=== PATIENT | female | born 1990 | race Caucasian/White ===

== ENCOUNTER 2024-06-19 12:25 | Outpatient (OUT) | payer MEDICAID, SELFPAY ==
--- NOTE | 2024-06-19 13:02 | XR_ITS ---
[facility] [place] [id number] Patient Name: VALERY LEWIS MRN: [id number] date: 1990 Sex: F Assigned Patient Location: [facility] Current Patient Location: Accession/Order Number: [id number] Exam Date: 06/19/2024 12:50 Report Date: 06/20/2024 09:23 At the request of: NIA WILSON Procedure: XR cervical spine 5V EXAMINATION: XR cervical spine 5V HISTORY: Neck Pain M54.2 COMPARISON: No relevant comparison available. FINDINGS: BONES: Normal alignment with no acute fracture or spondylolisthesis. Mild to moderate spondylosis C5-C6 DISC SPACES: Normal. No significant disc height narrowing, subluxation, or endplate abnormality. PARASPINOUS: Negative. No paraspinous abnormality is seen. OTHER: Negative. XR/XR cervical spine 5V IMPRESSION: Spondylosis C5-C6 Electronically authenticated by: HAN SCHWARTZ Date: 06/20/2024 09:23
[2024-06-19 13:18] LABS: Basophils Absolute Auto 0.1 10^3/uL (0.0-0.1); Basophils Percent Auto 0.9 % (0.2-2.0); Eosinophils Absolute Auto 0.1 10^3/uL (0.0-0.7); Eosinophils Percent Auto 1.3 % (0.9-7.0); Hematocrit 39.2 % (36.0-48.0); Hemoglobin 13.2 g/dL (12.0-16.0); Immature Granulocytes Abs Auto 0.01 10^3/uL (0.00-0.03); Immature Granulocytes Pct Auto 0.1 % (0.0-0.5); Lymphocytes Absolute Auto 2.1 10^3/uL (1.2-3.8); Lymphocytes Percent Auto 30.6 % (20.5-60.0); Mean Corpuscular HGB Conc 33.7 g/dL (29.9-35.2); Mean Corpuscular Hemoglobin 28.2 pg (26.7-34.0); Mean Corpuscular Volume 83.8 fL (81.0-99.0); Mean Platelet Volume 8.5 fL (9.5-13.5); Monocytes Absolute Auto 0.5 10^3/uL (0.3-0.8); Monocytes Percent Auto 6.5 % (1.7-12.0); Neutrophils Absolute Auto 4.2 10^3/uL (1.4-6.5); Neutrophils Percent Auto 60.6 % (43.0-75.0); Platelet Count 322 10^3/uL (150-450); Red Blood Count 4.68 10^6/uL (4.20-5.40)
[2024-06-19 13:47] LABS: Erythrocyte Sedimentation Rate 5 mm/hr (<=20)
[2024-06-19 13:57] LABS: Alanine Aminotransferase 22 U/L (14-59); Albumin Globulin Ratio 1.2; Alkaline Phosphatase 69 U/L (46-116); Anion Gap 11.8; Aspartate Amino Transferase 13 U/L (15-37); BUN Creatinine Ratio 15.4; Bilirubin Total 0.6 mg/dL (0.2-1.0); C Reactive Protein <0.50 mg/dL (<=0.50); Chloride 100 mmol/L (98-107); Estimated GFR (African America >60 (>=60 mL/min/1.73m^2); Estimated GFR (Non-African Ame >60 (>=60 mL/min/1.73m^2); Globulin 3.4 g/dL; Glucose 83 mg/dL (74-106); Potassium 3.8 mmol/L (3.5-5.1); Sodium 137 mmol/L (136-145); TSH W/ REFLEX FT4 0.613 uIU/mL (0.358-3.740); Total Protein 7.4 g/dL (6.4-8.2)
[2024-06-19 14:09] LABS: Percent Iron Saturation 47.1 %
[2024-06-20 08:15] LABS: Vitamin B12 416 pg/mL (232-1245)
[2024-06-20 13:07] LABS: Anti-CCP Ab, IgG/IgA 2 units (0-19); Antistreptolysin O Ab 124.9 IU/mL (0.0-200.0); Rheumatoid Factor (RF) 10.3 IU/mL (<14.0)
[2024-06-21 13:09] LABS: Antinuclear Antibodies, IFA Positive (.)
== END 2024-06-19 12:26 | disposition home or self-care (01) ==
LOC: RAD 12:29
PROVIDERS: PCP Nurse Practitioner Family; Visit Provider Nurse Practitioner Family
DX: R53.83 Other fatigue (principal); M25.9 Joint disorder, unspecified; G47.9 Sleep disorder, unspecified; E53.8 Deficiency of other specified B group vitamins; M54.2 Cervicalgia; M47.812 Spondylosis without myelopathy or radiculopathy, cervical region
CPT/HCPCS: 36415; 72050; 80053; 82306; 82607; 83540; 83550; 84443; 85025; 85652; 86038; 86060; 86140; 86200; 86431

== ENCOUNTER 2024-12-07 09:12 | Outpatient (OUT) | payer OTHER, SELFPAY ==
--- OUTSIDE RECORDS SUMMARY | 2022-06-17 07:31 | XMS_ITS | Continuity of Care Document ---
Author Organization [facility] Address [address] [place] [phone] Phone Care Team Providers Care Materials Planning Analyst Name Role Phone PCS, Other Non Billable [...] Diagnoses Date Provider Providers Copied on Encounter [facility], [address] [place] [address], [id number], [place] tel:[phone] L Call Center No Information 3 PCS Other Non Billable. [address] [place] [address], [id number], [place]. tel:[phone] RC Contraception [facility], [address] [place] [address], [address], tel: [phone] P ALMA Family Planning breast discharge (chief complaint) Initial Exam (chief complaint) contracept ion (chief complaint) Family planningInversion, nippleGynecologica l Examination 4 Kirk Khan. [address] [place] [address], [id number], [place]. tel:[phone] [facility], [address] [place] [address], [address], tel: [phone] C [facility] STD Clinic STI (chief complaint) Screening examination for venereal disease 4 [facility] Nurse. [address] [place] [address], [id number], [place]. tel:[phone] [facility], [address] [place] [address], [address], tel: [phone] P [facility] Dental No Information 2 Trey Laws. [address] [place] [address], [id number], [place]. tel:[phone] [facility], [address] [place] [address], [address], tel: [phone] P B[facility] General Medicine Screening examination for venereal disease 1 Jennifer Zaman. [address] [place] [address], [id number], [place]. tel:[phone] Family History Family Member Type Diagnosis Age [...] Of Treatment Date Type Action Status Goal Hepatitis C screening. Due o n due Goal CT-Colonography. Due on due Goal HPV. Due on due Goal FIT-DNA. Due on due Goal Unhealthy drug use screening . Due on due Goal FIT. Due on due Goal Pap/HPV testing. Due on due Goal Nutritional Screening Assess ment. Due on due Goal Hep C AB-8472. Due on due Goal Tdap. Due on due Goal FOBT. Due on due Goal Colonoscopy. Due on 023 due Goal Health Literacy. Due on due Goal Self Management Goals. Due o n due Goal Influenza vaccine. Due on due Goal Dental exam. Due on 023 due Goal Depression screening. Due on due Goal Tobacco cessation counseling [...] states wants to have gyne care with [facility]. breast discharge Location is lef t [...]
--- OUTSIDE RECORDS SUMMARY | 2024-12-05 14:00 | XMS_ITS | Encounter Summary ---
Author Organization [facility] Address [address], [address] [place] [address] Care Team Providers Care Family Helper Name Role Phone Artie Escobar DO Primary Care Provider Encounter Details Date Type Department Care Team (Late st Contact Info) Description 12/05/2024 2:00 PM EDT Procedure visit [facility] Physical Medicine and Rehabilitation [address] [place] [address] [address] [place], [place] [id number] [place] [address] [place] [address], [address] [place] [id number] Numbness and tingling in both hands (Primary Dx); Neck pain Social History Tobacco Use Types Packs/Day Years Used Date Smoking Tobacco: Never Assessed Comments Unknown Sex and Gender Information Value Date Recorded Sex Assigned at Not on file Legal Sex Female 12:17 PM EDT Gender Identity Not on file Sexual Orientation Not on file documented as of this encounter Progress Notes * Edson Art MD - 12/05/2024 2:02 PM EDT Images from the original note were not included. [facility] PHYSICAL MEDICINE AND REHABILITATION [address] [place] [address] [address] [facility] [address] Dept: [phone] Dept EMG/NCS Bilateral Upper Limb Subjective: Marlene Gonzales is a 34 y.o. female presenting with bilateral hand numbness and tingling. Patient presenting with bilateral hand numbness and tingling for over a year. Denies known injury or trauma, though does feel it may be related to holding her toddler. Reports constant numbness though the severity waxes and wanes; one side is not consistently worse than the other. Also has occasional pain associated with these symptoms, but pain is not always presents. Similarly endorses bilateral hand/review analyst weakness, feels that she is dropping things and has trouble holding onto things. Symptoms due often wake her up at night. PMH: Denies diabetes, denies thyroid disease PSH: Denies neck surgery, Denies hand surgery Objective: Physical Exam Constitutional: She appears well-developed and well-nourished. In no distress. Pulmonary/Chest: Respirations WNL and unlabored. MSK: Normal cervical spine ROM. No atrophy of the intrinsic hand musculature. Neurological: She is alert. Sensation to light touch. Strength 5/5 bilateral shoulder abduction, bilateral elbow flexion/extension, bilateral wrist extension; 4/5 bilateral review analyst. DTRs 2+ and symmetric. Negative Juliana's reflex bilaterally. Equivocal Tinel sign at the bilateral wrists. Ulnar nerve compression test negative bilaterally. Spurling negative bilaterally. Skin: Skin is warm and dry with good turgor. Imaging MR CERVICAL SPINE WO CONT INDICATION: Chronic neck pain. FINDINGS: Straightening normal cervical lordosis, no compression deformity or fracture. No malalignment. Small multilevel ventral osteophytes, no suspicious osseous process. Multilevel facet arthropathy. Unremarkable appearance of the visualized intracranial compartment. Unremarkable cervicomedullary junction and visualized cord. No cord edema. Unremarkable prevertebral and paravertebral soft tissues. Individual levels: Craniocervical junction: Normal alignment at the craniocervical junction without narrowing at the foramen magnum, C1-C2. Cerebellar tonsils in normal position. C2-C3: No significant neuroforaminal narrowing or spinal canal stenosis. C3-C4: Uncovertebral spurring noted, no significant disc bulge. No significant spinal canal stenosis. Mild to moderate right, minimal left-sided neuroforaminal narrowing. C4-C5: Slight uncovertebral spurring. No significant spinal canal stenosis. Mild neuroforaminal narrowing. C5-C6: Posterior disc osteophyte complex with right central disc protrusion. Moderate spinal canal stenosis, mild right, moderate left-sided neuroforaminal narrowing. C6-C7: Posterior disc osteophyte complex with central disc protrusion. Mild to moderate spinal canal stenosis, mild to moderate right and moderate left-sided neuroforaminal narrowing. C7-T1: No significant neuroforaminal narrowing or spinal canal stenosis. IMPRESSION: 1. Multilevel degenerative changes and disc disease with spinal canal stenosis and neuroforaminal narrowing as described. No cord signal abnormality. Findings: The procedure was explained to the patient prior to beginning the test. Risks and benefits of the procedure were discussed. Patient gave verbal consent to proceed. Nerve conduction studies: normal latencies, amplitudes, and conduction velocities in bilateral ulnar motor nerve conduction with no evidence of conduction block at the elbow. Normal latency and amplitude on bilateral ulnar sensory nerve conduction studies. Normal latencies, amplitudes, and conduction velocities in bilateral median motor nerve conduction studies. Prolonged latency, normal amplitudes in bilateral median sensory nerve conduction studies. Median-ulnar palmar comparison showed >0.5 ms difference bilaterally. EMG of selected muscles of the bilateral upper limb including deltoid, biceps, triceps, pronator teres, first dorsal interosseous, and abductor pollicis brevis as well as bilateral cervical paraspinals were all normal without evidence of acute denervations and without chronic findings. Impression: Abnormal electrodiagnostic study. Mild carpal tunnel syndrome (median neuropathy at wrist) bilaterally. There is no evidence of radiculopathy, plexopathy, or myopathy. Please see separate document with nerve conduction and EMG tables. I reviewed with the resident the medical history and the findings on the physical examination. I discussed with the resident the patient's diagnosis. Seen with Dr. Duane White, PGY-1 documented in this encounter Plan of Treatment Not on file documented as of this encounter Procedures Procedure Name Priority Date/Time Associated Diagnosis Comments MOTOR &/SENS 5-6 NRV CNDJ PRECONF ELTRODE LIMB Routine 12/06/2024 9:10 AM EDT Numbness and tingling in both hands NEEDLE EMG EA EXTREMTY W/PARASPINL AREA COMPLETE Routine 12/06/2024 9:10 AM EDT Numbness and tingling in both hands documented in this encounter Visit Diagnoses Diagnosis Numbness and tingling in both hands- Primary Neck pain Cervicalgia documented in this encounter Care Teams Family Helper Relationship Specialty Start Date End Date Artie Escobar DO [address] [facility] [place] [address] PCP - General Internal Medicine 12/05/24 documented as of this encounter
--- OUTSIDE RECORDS SUMMARY | 2024-12-07 09:15 | XMS_ITS | Clinical Summary ---
Author Organization [facility] tem Address [id number] [address] [place] [address] Care Team Providers Care Pet Stylist Name Role Phone Unavailable Primary Care Provider Unavailabl e Medications citalopram (CeleXA) 10 mg tablet Take 2 tablets (20 mg total) by mouth in the morning. 07/03/2024 Active amitriptyline (ELAVIL) 10 mg tabletIndicatio ns:Chronic fatigue One capsule at 8 PM each night 10 tablet 07/17/2024 Active Active Problems No known active problems Encounters Date Type Department Care Team Description 09/06/2024 Telephone [facility] [address] [place] [address] Jonathan Vargas MD from Last 3 Months Social History Tobacco Use Types Packs/Day Years Used Date Smoking Tobacco: Never Assessed Comments Unknown Sex and Gender Information Value Date Recorded Sex Assigned at Not on file Legal Sex Female 12:31 PM EST Gender Identity Not on file Sexual Orientation Not on file Last Filed Vital Signs Vital Sign Reading Time Taken Comments Blood Pressure 112/78 07/17/2024 12:05 PM EDT Pulse - - Temperature - - Respiratory Rate 18 07/17/2024 12:05 PM EDT Oxygen Saturation - - Inhaled Oxygen Concentration - - Weight 68 kg (150 lb) 07/17/2024 12:05 PM EDT Height - - Body Mass Index - - Plan of Treatment Upcoming Encounters Date Type Department Care Team (Late st Contact Info) Description 01/18/2025 2:30 PM EDT Procedure visit [facility] - Anthony Saez MD [facility] [address] [place] [phone] Anthony Saez MD [address] [facility] [facility] [address] [place] [address] Health Maintenance Due Date Last Done Comments Depression Screening 2000 Tobacco Screening 2000 Adult BMI Screening 2006 DTaP,Tdap and Td Vaccines (1 - Tdap) 07/23/2007 Pap Smear 2009 Influenza Vaccine 01/08/2025 Medical Devices Not on file Insurance [employer]
--- NOTE | 2024-12-07 09:26 | P.CN_ITS ---
Consult Note: HPI Data of Consult Patient: new to practice Requesting Physician: Rose Mckeon MD Primary Care Provider: NIA SIDHUACHEMila Consult Narrative Reason for consult: neck pain Narrative: Marlene Gonzales a pleasant 34 year old female presents for evaluation of chronic neck pain and BUE > 12 months unresponsive to HEP greater than 6 weeks, heat, ice, tylenol, nsaids. recent cervical MRI consistent with multilevel stenosis and spondylosis most significant C5-7. 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 Pain today 4/10 sharp aching heavy increasing to 10/10 intermittently. cc:: CC: Rose Mckeon MD Review of Systems ROS Musculoskeletal Reports: neck pain and extremity pain Meds Home Medications and Allergies Home Medications ?Medication ?Instructions ?Recorded ?Confirmed ?Type citalopram 10 mg tablet 10 mg PO DAILY 12/07/24 07/06/03 History magnesium glycinate 120 mg (as 240 mg PO HS 12/07/24 0 12/07/24 History glycinate) capsule Allergies Allergy/AdvReac Type Severity Reaction Status Date / Time No Known Drug Allergies Allergy Verified 12/07/24 09:50 Exam Constitutional Documenting provider has reviewed patient's vital signs: yes Common normals: no apparent distress, oriented x3, healthy appearing, alert and well nourished General appearance: cooperative HENMT Common normals: normocephalic, hearing grossly normal bilaterally and moist oral mucous membranes Head and scalp: normocephalic Eye Common normals: PERRL Pupil: PERRL Neck & C-Spine Common normals: full ROM General: normal visual inspection Cervical spine: cervical ROM abnormal, pain with cervical ROM, loss of normal cervical lordosis and cervical spine tenderness Other: positive spurlings decreased sensation bilateral C5,6,7 strength 3.5/5 in BUE Chest Common normals: inspection of chest normal Respiratory Common normals: normal respiratory effort, no retractions and no use of accessory muscles Neuro Common normals: oriented x3 Sensorium/orientation: alert Psych Common normals: mental status grossly normal, thought process normal, cooperative, affect normal, speech normal and activity/motor behavior normal Speech: normal speech Thought process: normal thought process Results Imaging cervical xray: Attestation: I have reviewed the pertinent imaging results. Radiologist's impression: FINDINGS: BONES: Normal alignment with no acute fracture or spondylolisthesis. Mild to moderate spondylosis C5-C6 DISC SPACES: Normal. No significant disc height narrowing, subluxation, or endplate abnormality. PARASPINOUS: Negative. No paraspinous abnormality is seen. OTHER: Negative. Additional Findings Additional findings: If on a controlled substance or opioids, I have checked an [place]AR[place] report on this patient and there are no aberrancies noted in the prescribing history.??If on a controlled substance or opioid a drug screen was completed and reviewed within the last year, and if there has not been a drug screen completed we ordered one today to monitor higher risk, state monitored pain medication use. As part of providing excellent, safe, comprehensive care, the following was completed at our patient's visit: 1. A medication reconciliation and review to ensure accurate knowledge of current/active medications, including asking our patients to inform us about any [id number] medications or herbal remedies/nutritional supplements/alternative remedies. 2. A review to specifically ensure our patients have had annual screening for screening for depression, screening for tobacco use, and screening for unhealthy alcohol use. For concerning screenings had a discussion with the patient, provided patient education, and recommended follow-up with primary care provider when appropriate. If patient noted with a risk of falling, they received education on strength, gait, and balance training to prevent future risk of falling. Portions of this note may have been carried over from the previous visit and updated as appropriate. Please note this office utilizes paper charting in addition to the electronic medical record. A list of current medications, vitals, and PMH is available there as the clinical staff outside of myself do not have access to [facility] charting during the clinic day operations. As part of providing quality comprehensive care the current medications, vitals, and PMH were reviewed in the paper chart. Assessment and Plan Assessment and Plan (1) Cervical spinal stenosis: Assessment and Plan: The patient has had over 3 months of moderate to severe neck and BUE pain with functional impairment and inadequate response to conservative care including NSAIDS (unless there are contraindication such as concurrent blood thinners), multiple oral or topical pain medications, and home exercise program/physical therapy.? Patient has completed >6 weeks of guided home exercise program and/or formal physical therapy program without relief of their symptoms.? The Oswestry Disability Index was completed, and the patient scored a 8%.? The patient noted the following:?? moderate to severe pain with ADLs and sleep We discussed the risks and benefits of the procedure with the patient, and we are NOT planning on using sedation as outlined in the guidelines from Medicare unless there is a documented reason that sedation would be strongly recommended.?? ?The procedure will be completed with fluoroscopic guidance.? (2) Cervical radiculopathy: (3) Cervical spondylosis: (4) Myalgia, other site: Plan bilateral C5-6 TFESI followed by bilateral C6-7 TFESI under fluoroscopy defer additional medication management at this time f/u 2 weeks after injection
--- OUTSIDE RECORDS SUMMARY | 2024-12-07 09:34 | XMS_ITS | CCD ---
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 Role Phone Unavailable Primary Care Provider Unavailabl e Medications Current Medications Medication Drug Class(es) Dates Sig (Normalized) Sig (Original) amitriptyline hydrochloride 10 mg oral tablet (4 sources) Tricyclic Antidepressant Start: 07-17-2024 End: 07-17-2024 amitriptyline (ELAVIL) 10 mg tablet Indications: Chronic fatigue One capsule at 8 PM each night 10 tablet 07/17/2024 Active citalopram 10 mg oral tablet (9 sources) Serotonin Reuptake Inhibitor Start: 09-14-2024 take 3 tablets by mouth once daily Citalopram 10 mg tablet Active 30 MG PO Daily 270 90 September 14, 2024 11:31am Start: 07-03-2024 take 2 tablets by mo ut in the morning citalopram (CeleXA) 10 mg tablet Take 2 tablets (20 mg total) by mouth in the morning. 07/03/2024 Active Start: 06-26-2024 End: 09-14-2024 Citalopram 10 mg tablet Disc ontinued 15 MG PO Daily 135 90 June 26, 2024 2:17pm September 14, 2024 11:33am Start: 06-05-2024 End: 06-26-2024 take 1 tablet by mouth once daily Citalopram 10 mg tablet Discontinued 10 MG PO Daily 30 June 05, 2024 1:00am June 26, 2024 2:18pm Problems Problem Classification Problem Date Documented Da te Episodic/Chronic Anxiety disorders (7 sources) Anxiety; Translations: [Anxiety disorder, unspecified] 06-05-2024 Chronic Immunizations and screening for infectious disease (1 source) Anti-nuclear factor positive; Translations: [Other specified abnormal immunological findings in serum] 07-17-2024 Episodic Malaise and fatigue (1 source) Fatigue; Translations: [Chronic fatigue, unspecified] 07-17-2024 Chronic Malaise and fatigue (5 sources) Fatigue; Translations: [Other fatigue] 06-05-2024 Episodic Nutritional deficiencies (5 sources) Cobalamin deficiency; Translations: [Deficiency of other specified B group vitamins] 06-05-2024 Episodic Other nervous system disorders (2 sources) Neuropathy; Translations: [Polyneuropathy, unspecified] 07-17-2024 Chronic Other non-traumatic joint disorders (3 sources) Joint finding; Translations: [Joint disorder, unspecified] 06-05-2024 Episodic Other non-traumatic joint disorders (2 sources) Joint disorder, unspecified; Translations: [Unspecified disorder of joint, multiple sites] 06-05-2024 Episodic Residual codes; unclassified (3 sources) Disturbance in sleep behavior; Translations: [Sleep disorder, unspecified] 06-05-2024 Episodic Residual codes; unclassified (4 sources) Sleep disorder, unspecified; Translations: [Sleep disturbance, unspecified] 06-05-2024 Episodic Spondylosis; intervertebral disc disorders; other back problems (9 sources) Neck pain; Translations: [Cervicalgia] 06-05-2024 Episodic Thyroid disorders (5 sources) Cyst of thyroid; Translations: [Nontoxic single thyroid nodule] 04-13-2024 Chronic Results Test Name Value Interpretation Reference Range Facility Basophils Auto (Bld) [#/Vol] on 06-19-2024 Basophils (Bld) [#/Vol] Automated basoph il count 0.0-0.1 [facility] Basophils/100 WBC Auto (Bld) on 06-19-2024 Basophils/100 WBC (Bld) Automated basophil % 0. 2-2.0 [facility] Centriole Ab [Titer] in Seru m by Immunofluorescenceon 06-19-2024 Centriole Ab IF (S) [Titer] Centriole Ab [Titer] in Serum by Immunofluorescence . [facility] Centromere Ab [Titer] in Ser um by Immunofluorescenceon 06-19-2024 Centromere Ab IF (S) [Titer] Centromere Ab [Titer] in Serum by Immunofluorescence . [facility] Eosinophils/100 WBC Auto (Bl d)on 06-19-2024 Eosinophils/100 WBC (Bld) Automated eosinophil % 0.9-7.0 [facility] Erythrocyte distribution wid th Auto (RBC) [Ratio]on 06-19-2024 Erythrocyte distribution width (RBC) [Ratio] Erythrocyte distribution width [Ratio] by Automated count 11.0-15.0 [facility] Estimated glomerular filtrat ion rate (GFR) non- Americanon 06-19-2024 GFR/1.73 sq M.predicted among non-blacks MDRD (S/P/Bld) [Vol rate/Area] Estimated glomerular filtration rate (GFR) non- >=60 mL/min/1.73m 2 [facility] Globulin Calc (S) [Mass/Vol] on 06-19-2024 Globulin (S) [Mass/Vol] Serum globulin measurement by calculation (mass/volume) [facility] Hematocrit Auto (Bld) [Volum e fraction]on 06-19-2024 Hematocrit (Bld) [Volume fraction] Hematocrit [Volume Fraction] of Blood by Automated count 36.0-48.0 [facility] Hemoglobin [Mass/volume] in Bloodon 06-19-2024 Hemoglobin (Bld) [Mass/Vol] Hemoglobin [Mass/volume] in Blood 12.0-16.0 [facility] Iron binding capacity [Mass/ volume] in Serum or Plasmaon 06-19-2024 Iron binding capacity [Mass/Vol] Iron binding capacity [Mass/volume] in Serum or Plasma 250.0-450.0 [facility] Iron saturation [Mass Fracti on] in Serum or Plasmaon 06-19-2024 Iron saturation [Mass fraction] Iron saturation [Mass Fraction] in Serum or Plasma [facility] Laboratory - Chemistry and C hemistry - challengeon 06-19-2024 Albumin [Mass/Vol] 4.0 g/dL 3.4-5.0 [facility] ALP [Catalytic activity/Vol] 69 U/L 46-116 [facility] ALT [Catalytic activity/Vol] 22 U/L 14-59 [facility] AST [Catalytic activity/Vol] 13 U/L Low 15-37 [facility] Bilirubin [Mass/Vol] 0.6 mg/dL 0.2-1.0 [facility] Calcium [Mass/Vol] 9.0 mg/dL 8.5-10.1 [facility] Chloride [Moles/Vol] 100 mmol/L 98-107 [facility] CO2 [Moles/Vol] 29.0 mmol/L 21.0-32.0 [facility] Cobalamin (Vitamin B12) [Mass/Vol] 416 pg/mL 232-1245 [facility] Comment on above: Performed at: - [address] [id number] Director: Jose F Mcdonald PhD, Phone: [phone] Creatinine [Mass/Vol] 0.78 mg/dL 0.55-1.02 [facility] GFR/1.73 sq M.predicted MDRD (S/P/Bld) [Vol rate/Area] mL/min/{1.73_m2} >=60 mL/min/1.73m 2 [facility] Glucose [Mass/Vol] 83 mg/dL 74-106 [facility] Iron [Mass/Vol] 144.0 ug/dL 50.0-170.0 [facility] Potassium [Moles/Vol] 3.8 mmol/L 3.5-5.1 [facility] Protein [Mass/Vol] 7.4 g/dL 6.4-8.2 [facility] Sodium [Moles/Vol] 137 mmol/L 136-145 [facility] TSH Qn 0.613 m[IU]/L 0.358-3.740 [facility] Urea nitrogen [Mass/Vol] 12.0 mg/dL 7.0-18.0 [facility] Urea nitrogen/Creatinine [Mass ratio] 15.4 mg/mg [facility] Laboratory - Hematology and Cell countson 06-19-2024 ESR (Bld) [Velocity] 5 mm/h <=20 [facility] Immature granulocytes/100 WBC (Bld) 0.1 % 0.0-0.5 [facility] Leukocytes [#/volume] correc herb for nucleated erythrocytes in Blood by Automated counon 06-19-2024 WBC corrected for nucl RBC Auto (Bld) [#/Vol] Leukocytes [#/volume] corrected for nucleated erythrocytes in Blood by Automated coun 4.0-11.0 [facility] Lymphocytes Auto (Bld) [#/Vo l]on 06-19-2024 Lymphocytes (Bld) [#/Vol] Lymphocytes [#/volume] in Blood by Automated count 1.2-3.8 [facility] Lymphocytes/100 WBC Auto (Bl d)on 06-19-2024 Lymphocytes/100 WBC (Bld) Lymphocytes/100 leukocytes in Blood by Automated count 20.5-60.0 [facility] MCH Auto (RBC) [Entitic mass ]on 06-19-2024 MCH (RBC) [Entitic mass] MCH [Entitic ma ss] by Automated count 26.7-34.0 [facility] MCHC Auto (RBC) [Mass/Vol]on 06-19-2024 MCHC (RBC) [Mass/Vol] MCHC [Mass/volume] by Automated count 29.9-35.2 [facility] MCV Auto (RBC) [Entitic vol] on 06-19-2024 MCV (RBC) [Entitic vol] MCV [Entitic vol ume] by Automated count 81.0-99.0 [facility] Midbody Ab [Titer] in Serum by Immunofluorescenceon 06-19-2024 Midbody Ab IF (S) [Titer] Midbody Ab [Titer] in Serum by Immunofluorescence . [facility] Mitotic spindle apparatus Ab [Titer] in Serum or Plasma by Immunofluorescenceon 06-19-2024 Mitotic spindle apparatus Ab IF [Titer] Mitotic spindle apparatus Ab [Titer] in Serum or Plasma by Immunofluorescence . [facility] Monocytes Auto (Bld) [#/Vol] on 06-19-2024 Monocytes (Bld) [#/Vol] Automated blood monocyte count 0.3-0.8 [facility] Monocytes/100 WBC Auto (Bld) on 06-19-2024 Monocytes/100 WBC (Bld) Automated monocyte % 1. 7-12.0 [facility] Neutrophils Auto (Bld) [#/Vo l]on 06-19-2024 Neutrophils (Bld) [#/Vol] Neutrophils [#/volume] in Blood by Automated count 1.4-6.5 [facility] Neutrophils/100 WBC Auto (Bl d)on 06-19-2024 Neutrophils/100 WBC (Bld) Automated neutrophil % 43.0-75.0 [facility] No Panel Informationon 06-19 25-Hydroxy Vitamin D Total 18.5 ng/mL [facility] Comment on above: <20 ng/mL Vit D defi cient20-<30 ng/mL Vit D [id number] ng/mL Vit D sufficient>100 ng/mL Potential Toxicity Anti-Nuclear Antibody Comment 2 Comment . [facility] Comment on above: Pattern Potential Di sease Association Homogeneous Systemic Lupus Erythematosus, Drug Induced Systemic Lupus Erythematosus, Chronic Autoimmune hepatitis, Juvenile Idiopathic Arthritis Speckled Sjogren Syndrome, Systemic Lupus Erythematosus, Subacute Cutaneous Lupus, Lupus, Congenital Heart Block, Mixed Connective Tissue Disease, Scleroderma-diffuse, Scleroderma-Autoimmune Myositis Overlap Syndrome, Systemic Lupus Zmbgkhxygqjlv-Xvmwjkwtnok-Yejiggtatb Myositis Overlap Syndrome, Systemic Autoimmune Rheumatic Disease, Undifferentiated Connective Tissue Disease Nucleolar Systemic Sclerosis, Scleroderma-Autoimmune Myositis Overlap Syndrome, Sjogren Syndrome, Raynaud phenomenon, Pulmonary Arterial Hypertension, Systemic Autoimmune Rheumatic Disease, Cancer Centromere Scleroderma-CREST, Limited Cutaneous SSc, Raynaud's Phenomenon, Primary Biliary Cholangitis Nuclear Dot Primary Biliary Cholangitis Nuclear Primary Biliary Cholangitis, AutoimmuneMembrane Hepatitis/Liver disease, Systemic Autoimmune Rheumatic Disease, Autoimmune Cytopenias, Linear Scleroderma, Antiphospholipid Syndrome Performed at: [facility] [address] [id number] Director: Jose F Mcdonald PhD, Phone: [phone] C-Reactive Protein, Quantitative <0.50 mg/dL <=0.50 [facility] Eosinophils # (Auto) 0.1 10 3/uL 0.0-0.7 [facility] Immature Granulocyte # (Auto) 0.01 10 3/uL 0.00-0.03 [facility] Nuclear dots nuclear Ab andrey melecio [Titer] in Serum by Immunofluorescenceon 06-19-2024 Nuclear dots nuclear Ab pattern IF (S) [Titer] Nuclear dots nuclear Ab pattern [Titer] in Serum by Immunofluorescence . [facility] Nuclear membrane pores nucle ar Ab pattern [Titer] in Serum by Immunofluorescenceon 06-19-2024 Nuclear membrane pores nuclear Ab pattern IF (S) [Titer] Nuclear membrane pores nuclear Ab pattern [Titer] in Serum by Immunofluorescence . [facility] PCNA extractable nuclear Ab [Titer] in Serum by Immunofluorescenceon 06-19-2024 PCNA extractable nuclear Ab IF (S) [Titer] PCNA extractable nuclear Ab [Titer] in Serum by Immunofluorescence . [facility] Platelet mean volume Auto (B ld) [Entitic vol]on 06-19-2024 Platelet mean volume (Bld) [Entitic vol] Platelet mean volume [Entitic volume] in Blood by Automated count Low 9.5-13.5 [facility] Platelets Auto (Bld) [#/Vol] on 06-19-2024 Platelets (Bld) [#/Vol] Platelets [#/vol ume] in Blood by Automated count 150-450 [facility] RBC Auto (Bld) [#/Vol]on RBC (Bld) [#/Vol] Erythrocytes [#/volume] in Blood by Automated count 4.20-5.40 [facility] Serum homogeneous pattern an tinuclear antibody (NEHEMIAS) titeron 06-19-2024 Homogenous nuclear Ab pattern (S) [Titer] Serum homogeneous pattern antinuclear antibody (NEHEMIAS) titer . [facility] Serum nuclear antibody titer on 06-19-2024 Nuclear Ab (S) [Titer] Serum nuclear ant ibody titer Abnormal . [facility] Comment on above: Negative <1:80 Borde rline 1:80 Positive >1:80 Serum nucleolar pattern anti nuclear antibody (NEHEMIAS) titeron 06-19-2024 Nucleolar nuclear Ab pattern (S) [Titer] Serum nucleolar pattern antinuclear antibody (NEHEMIAS) titer . [facility] Serum or plasma albumin/glob ulin mass ratioon 06-19-2024 Albumin/Globulin [Mass ratio] Serum or plasma albumin/globulin mass ratio [facility] Serum or plasma anion gap de terminationon 06-19-2024 Anion gap [Moles/Vol] Serum or plasma an ion gap determination [facility] Serum speckled pattern antin uclear antibody (NEHEMIAS) titeron 06-19-2024 Speckled nuclear Ab pattern (S) [Titer] Serum speckled pattern antinuclear antibody (NEHEMIAS) titer . [facility] Comment on above: ICAP nomenclature: A C-2,4,5,29 Vital Signs Date Time Vital Sign Value Performing Clinician Hansi lity 09-14-2024 11:130400 Body height 157.48 cm [facility] 09-14-2024 11:13040 Body mass index (BMI) [Ratio] 27.1 kg/m2 [facility] 09-14-2024 11:130400 Body temperature 95.4 [degF] [facility] 09-14-2024 11:13040 Body weight 67.13 kg [facility] 09-14-2024 11:13-0400 Diastolic blood pressure 62 mm[Hg] [facility] 09-14-2024 11:13-0400 Heart rate 75 /min [facility] 09-14-2024 11:13-0400 SaO2% (BldA) [Mass fraction] 99 % [facility] 09-14-2024 11:13-0400 Systolic blood pressure 110 mm[Hg] [facility] 07-17-2024 12:05-0400 Body weight 68.04 kg Arielle Aiken MD Work Phone: [facility] 07-17-2024 12:05-0400 Diastolic blood pressure 78 mm[Hg] Arielle Aiken MD Work Phone: [facility] 07-17-2024 12:05-0400 Respiratory rate 18 /min Airelle Aiken MD Work Phone: [facility] 07-17-2024 12:05-0400 Systolic blood pressure 112 mm[Hg] Arielle Aiken MD Work Phone: [facility] 06-26-2024 13:05-0500 Body height 157.48 cm [facility] 06-26-2024 13:05-0500 Body mass index (BMI) [Ratio] 27.2 kg/m2 [facility] 06-26-2024 13:05-0500 Body weight 67.58 kg [facility] 06-26-2024 13:05-0500 Diastolic blood pressure 72 mm[Hg] [facility] 06-26-2024 13:05-0500 Heart rate 94 /min [facility] 06-26-2024 13:05-0500 SaO2% (BldA) [Mass fraction] 98 % [facility] 06-26-2024 13:05-0500 Systolic blood pressure 120 mm[Hg] [facility] 06-05-2024 13:07-0500 Body height 157.48 cm [facility] 06-05-2024 13:07-0500 Body mass index (BMI) [Ratio] 27.7 kg/m2 [facility] 06-05-2024 13:07-0500 Body temperature 96.8 [degF] [facility] 06-05-2024 13:07-0500 Body weight 68.71 kg [facility] 06-05-2024 13:07-0500 Diastolic blood pressure 78 mm[Hg] [facility] 06-05-2024 13:07-0500 Heart rate 86 /min [facility] 06-05-2024 13:07-0500 SaO2% (BldA) [Mass fraction] 98 % [facility] 06-05-2024 13:07-0500 Systolic blood pressure 126 mm[Hg] [facility] 04-13-2024 10:57-0500 Body height 157.48 cm [facility] 04-13-2024 10:57-0500 Body mass index (BMI) [Ratio] 28.2 kg/m2 [facility] 04-13-2024 10:57-0500 Body weight 70.02 kg [facility] 04-13-2024 10:57-0500 Diastolic blood pressure 82 mm[Hg] [facility] 04-13-2024 10:57-0500 Heart rate 89 /min [facility] 04-13-2024 10:57-0500 SaO2% (BldA) [Mass fraction] 98 % [facility] 04-13-2024 10:57-0500 Systolic blood pressure 120 mm[Hg] [facility] Encounters Encounter Date Encounter Type Care Provider Facility Start: 09-14-2024 End: 09-14-2024 ambulatory [facility] Work Phone: Start: 09-14-2024 End: 09-14-2024 Patient encounter procedure [facility] Work Phone: Start: 09-06-2024 End: 09-06-2024 Telephone encounter Jonathan Vargas MD Work Phone: [facility] Start: 09-04-2024 End: 09-04-2024 Refill Arielle Aiken MD Work Phone: [facility] Department of [facility] Comment on above: Cervical stenosis of spinal canal (Primary Dx) Start: 07-17-2024 End: 07-17-2024 Office outpatient new 45 minutes Arielle Aiken MD [facility] Comment on above: NEHEMIAS positive (Primar y Dx); Neuropathy; Chronic fatigue; Neck pain Start: 06-26-2024 End: 06-26-2024 ambulatory [facility] Work Phone: Start: 06-26-2024 End: 06-26-2024 Patient encounter procedure [facility] Work Phone: Start: 06-19-2024 Non-patient / Non-visit [facility] Work Phone: Start: 06-05-2024 End: 06-05-2024 ambulatory [facility] Work Phone: Start: 06-05-2024 End: 06-05-2024 Patient encounter procedure [facility] Work Phone: Start: 04-13-2024 Patient encounter status [facility] Start: 04-13-2024 End: 04-13-2024 Encounter for general adult medical examination without abnormal findings [facility] Start: 04-13-2024 End: 04-13-2024 Patient encounter procedure [facility] Work Phone: Start: 04-11-2024 Non-patient / Non-visit [facility] Work Phone: Plan of Treatment Date Care Activity Detail Author Start: 01-08-2025 Influenza vaccination Influenza Vacc ine [facility] Start: 10-23-2024 End: 10-23-2024 Patient encounter procedure 10/23/2024 12:00 PM EDT [facility] of [place] [phone] Arielle Aiken MD [address] [address] [facility] Start: 10-16-2024 End: 10-16-2024 Patient encounter procedure 10/16/2024 1:45 PM EDT Procedure visit [facility] - Anthony Saez MD [address] [place] [address] Anthony Saez MD [address] [facility] [address] [place] [address] [facility] - Anthony Saez MD Start: 09-04-2024 End: 09-04-2024 Patient encounter procedure 09/04/2024 12:45 PM EDT [facility] [address] [phone] Arielle Aiken MD [address] [address] [facility] Start: 07-17-2024 End: 07-17-2025 MR Cervical spine WO contrast MR cervical spine without contrast Imaging Routine Neck pain Expected: 07/17/2024, Expires: 07/17/2025 [facility] Comment on above: Expected: 07/17/2024 , Expires: 07/17/2025 Start: 01-09-2024 Influenza vaccination Influenza Vacc ine [facility] Start: 2009 Screening for malign ant neoplasm of cervix Pap Smear [facility] Start: 07-23-2007 DTaP,Tdap and Td Vaccines (1 - Tdap) DTaP,Tdap and Td Vaccines (1 - Tdap) [facility] Start: 2006 Adult BMI Screening Adult BMI Screen ing [facility] Start: 2000 Depression Screening Depression Scre ening [facility] Start: 2000 Tobacco Screening Tobacco Screening [facility] Adenosine monophosphate.cyclic [Moles/volume] in Serum or Plasma [facility] End: 07-17-2025 Antinuclear Ab, HEp-2 Substrate, S Antinuclear Ab, HEp-2 Substrate, S Lab Routine NEHEMIAS positive 1 Occurrences starting 07/17/2024 until 07/17/2025 [email or web address] Work Phone: Comment on above: 1 Occurrences starti ng 07/17/2024 until 07/17/2025 Comprehensive metabo lic 2000 panel - Serum or Plasma [facility] End: 07-17-2025 EMG With NCV EMG With NCV Neurology Routine Neuropathy 1 Occurrences starting 07/17/2024 until 07/17/2025 [facility] Comment on above: 1 Occurrences starti ng 07/17/2024 until 07/17/2025 Rheumatoid factor [Units/volume] in Serum or Plasma [facility] XR Cervical spine 5 Views [facility] Payers Date Payer Category Payer Medicaid [id number] Medicaid [id number] Social History Date Type Detail Facility Start: 04-13-2024 End: 04-13-2024 Tobacco smoking status NHIS Never smoked tobacco (finding) [facility] Start: 06-05-2024 End: 09-14-2024 Sex Female (finding) [facility] Start: 1990 Sex Assigned At Female [facility] Tobacco smoking status [facility] Tobacco smoking consumption unknown [facility] Start: 1990 Sex assigned at Not on file [facility] Gender identity Not on file [facility] Clinical Notes 04-13-2024 to 09-06-2024 Telephone Encounter - Willow Silver - 09/06/2024 11:24 AM EDTTelephone Encounter - Willow Silver - 09/06/2024 11:24 AM HERMANTArielle Aiken MD - 07/17/2024 12:00 PM EDT Note Date & Type Note Facility 09-06-2024 Miscellaneous Notes Formattin g of this note might be different from the original. Received referral. Dr Vargas reviewed actual films. Advised patient should try cervical epidural injections at C5-6 level. If she is not better after these injections she can call for appointment. Patient will call her PCP for this referral. documented in this encounter [facility] 09-06-2024 Telephone encount er Note Received referral. Dr Vargas reviewed actual films. Advised patient should try cervical epidural injections at C5-6 level. If she is not better after these injections she can call for appointment. Patient will call her PCP for this referral. [facility] 07-17-2024 History of Presen t illness Narrative Images from the original note were not included. [address] [phone] Date of Service: 07/17/2024 Subjective: Marlene Gonzales is a 33 y.o. female who presents today for evaluation neck pain. Patient is seen at the request of No primary care provider on file.. This is the 1st clinic visit for this -33- year-old female patient who has been referred to us with neck pain Patient symptoms started 08/2023 upper back pain, numbness both upper limbs, with weakness both hands,hasp pain on the hands,loss of short term memory, Headaches in the morning,Fatigued ,sleep interrupted Hips .lower back pain. No Raynaud's, she has oral ulcers, dry mouth ,she has excessive hair loss, no butterfly rash, no skin rash or psoriasis. No constitutional symptoms. No history of cytopenia, serositis, DVT/PE . Patient has one child In addition she has been having neck pain as well as low back pain Recent lab June 2024 NEHEMIAS screen positive, rheumatoid factor CCP negative, ESR CRP normal, CBC and CMP normal, TSH low Past surgical negative Past medical negative Smoking history Vape Family history negative The following portions of the patient's history were reviewed and updated as appropriate: allergies, current medications, past family history, past medical history, past social history, past surgical history and problem list. Review of Systems: Review of Systems Constitutional: Positive for fatigue (11/16). Negative for activity change, appetite change, fever and unexpected weight change. HENT: Negative for mouth sores, rhinorrhea and sneezing. Eyes: Negative for photophobia, pain, redness and visual disturbance. Respiratory: Negative for cough and shortness of breath. Cardiovascular: Negative for chest pain and palpitations. Gastrointestinal: Negative for abdominal pain, blood in stool, constipation, diarrhea, nausea and vomiting. Genitourinary: Negative for dysuria, frequency, hematuria and urgency. Musculoskeletal: Positive for arthralgias, back pain, myalgias and neck pain. Negative for gait problem, joint swelling and neck stiffness. Diffuse musculoskeletal pain , feels tired in the morning, exhausted and easy fatigability during daytime Skin: Negative for color change, pallor and rash. Allergic/Immunologic: Negative. Neurological: Positive for headaches. Negative for seizures, syncope and weakness. Hematological: Does not bruise/bleed easily. Psychiatric/Behavioral: Positive for dysphoric mood and sleep disturbance. Poor sleep Current Outpatient Medications Medication Sig Dispense Refill citalopram (CeleXA) 10 mg tablet Take 2 tablets (20 mg total) by mouth in the morning. amitriptyline (ELAVIL) 10 mg tablet One capsule at 8 PM each night 10 tablet 0 No current facility-administered medications for this visit. Physical Exam: Physical Exam Vitals and nursing note reviewed. Constitutional: Appearance: She is well-developed. HENT: Head: Normocephalic and atraumatic. Right Ear: External ear normal. Left Ear: External ear normal. Nose: Nose normal. Eyes: Conjunctiva/sclera: Conjunctivae normal. Pupils: Pupils are equal, round, and reactive to light. Neck: Thyroid: No thyromegaly. Vascular: No JVD. Cardiovascular: Rate and Rhythm: Normal rate and regular rhythm. Heart sounds: Normal heart sounds. No murmur heard. No friction rub. No gallop. Pulmonary: Effort: Pulmonary effort is normal. Breath sounds: Normal breath sounds. No stridor. Chest: Chest wall: Tenderness present. Abdominal: General: There is no distension. Palpations: Abdomen is soft. There is no mass. Tenderness: There is no abdominal tenderness. Musculoskeletal: General: No tenderness or deformity. Normal range of motion. Cervical back: Normal range of motion and neck supple. Comments: Symmetrical tender trigger points No synovitis Lymphadenopathy: Cervical: No cervical adenopathy. Skin: General: Skin is warm and dry. Coloration: Skin is not pale. Findings: No erythema or rash. Neurological: Mental Status: She is alert and oriented to person, place, and time. Cranial Nerves: No cranial nerve deficit. Coordination: Coordination normal. Psychiatric: Behavior: Behavior normal. Thought Content: Thought content normal. TORRE-28 (If Applicable) There is currently no information documented on the homunculus. Go to the Rheumatology activity and complete the homunculus joint exam. TORRE-28 (CRP): -- TORRE-28 (ESR): -- Tender (TORRE-28): -- Swollen (TORRE-28): -- BP 112/78 Resp 18 Wt 68 kg (150 lb) : reviewed Labs and Imaging: reviewed and discussed with the patient during the visit.I No results found for: WBC , RBC , HGB , HCT , MCV , ESR , CRP , RF , C3 , C4 , GFR , CA , AST , PROT Imaging: Assessment and Plan: Marlene Gonzales is a 33 y.o. female patient with: 1. NEHEMIAS positive - Antinuclear Ab, HEp-2 Substrate, S; Future 2. Neuropathy - EMG With NCV; Future 3. Chronic fatigue - amitriptyline (ELAVIL) 10 mg tablet; One capsule at 8 PM each night Dispense: 10 tablet; Refill: 0 4. Neck pain - MR cervical spine without contrast; Future This time seeing this patient who presented with neck pain and upper back pain with numbness both upper limbs addition to fatigue. She does have positive NEHEMIAS screen, both ESR CRP normal, rheumatoid factor and CCP negative as well as CBC and CMP were normal. The likelihood she has no inflammatory condition. Will repeat NEHEMIAS by IFA. Nerve conduction studies. MRI cervical spine Start patient on low-dose amitriptyline RTC 1 month Total hnud-nr-cwro time was 35 minutes with more than 50% of the visit spent counseling and discussing diagnostic or treatment recommendations, prognosis, risks and benefits of management options, instructions, compliance or risk-factor reduction. This note was created with the assistance of a speech recognition program. While intending to generate a timely document that accurately reflects the content of the visit, no guarantee can be provided that every grammatical or spelling mistake has been or will be identified or corrected. Thank you for your understanding. [facility] Rheumatology Dr. Arielle Aiken MD [address], [address] [place] [address] Office: [phone] documented in this encounter [facility] [place] 06-26-2024 Evaluation note Diagnosis Onset Date Resolution Anxiety acute June 26, 2024 1:02pm Sleep disturbance acute 2024 1:02pm [facility] Work Phone: 1(269) 495-515812-05-2024 Evaluation note* Diagnosis Onset Date Resolution Status Admit Date Benign thyroid cyst acute Dece2023 10:40am Wellness examination acute 2023 10:40am Anxiety acute June 05, 2024 1:02pm Fatigue acute June 05, 2024 1:02pm Multiple joint complaints acute June 05, 2024 1:02pm Neck pain acute June 05, 2024 1:02pm Sleep disturbance acute June 05, 2024 1:02pm Vitamin B 12 deficiency acute J anuary 2024 1:02pm [facility] Work Phone: 1(982) 216-778812-05-2024 Evaluation note* Diagnosis Onset Date Resolution Status Admit Date Benign thyroid cyst acute Dece2023 10:40am Wellness examination acute 2023 10:40am Anxiety acute June 05, 2024 1:02pm Fatigue acute June 05, 2024 1:02pm Multiple joint complaints acute June 05, 2024 1:02pm Neck pain acute June 05, 2024 1:02pm Sleep disturbance acute June 05, 2024 1:02pm Vitamin B 12 deficiency acute J anuary 2024 1:02pm Anxiety acute June 26, 2024 1:02pm Sleep disturbance acute Februar y 2024 1:02pm [facility] Work Phone: Evaluation note* Diagnosis NEHEMIAS positive- Primary Neuropathy Mononeuritis of unspecified site Chronic fatigue Other malaise and fatigue Neck pain Cervicalgia [facility] Cervical stenosis of spinal canal- Primary Spinal stenosis in cervical region [facility] filedocumented in this [facility] filedocumented in this [facility] filedocumented in this encounter [facility] Chief Complaint and Reason for Visit Chief Complaint Admit Date CC Adult Risk Stratification April 9:40am Est Care April 13, 2024 1 0:40am medical concerns June 05, 2024 1 :02pm Reason for Visit Admit Date Benign thyroid cyst April 13, 2024 1 0:40am Wellness examination April 13, 2024 10:40am Anxiety June 05, 2024 1 :02pm Fatigue June 05, 2024 1 :02pm Multiple joint complaints June 05, 2024 1:02pm Neck pain June 05, 2024 1 :02pm Sleep disturbance June 05, 2024 1 :02pm Vitamin B 12 deficiency June 05 1:02pm Chief Complaint Admit Date CC Adult Risk Stratification April 9:40am Est Care April 13, 2024 1 0:40am medical concerns June 05, 2024 1 :02pm F/U Medication June 26, 2024 1:02pm Reason for Visit Admit Date Benign thyroid cyst April 13, 2024 1 0:40am Wellness examination April 13, 2024 10:40am Anxiety June 05, 2024 1 :02pm Fatigue June 05, 2024 1 :02pm Multiple joint complaints June 05, 2024 1:02pm Neck pain June 05, 2024 1 :02pm Sleep disturbance June 05, 2024 1 :02pm Vitamin B 12 deficiency June 05 1:02pm Anxiety June 26, 2024 1:02pm Sleep disturbance June 26, 2024 1:02pm Chief Complaint Admit Date F/U Medication June 26, 2024 1:02pm 3 month f/u September 14, 2024 11:07a m Reason for Visit Admit Date Anxiety June 26, 2024 1:02pm Sleep disturbance June 26, 2024 1:02pm Family History Relationship Condition Age at Onset Recorded Date/T anuj maternal grandfather Malignant neoplasm Unknown family member Malignant neoplasm Unknown maternal grandmother Mesothelioma Unknown Advance Directives Advance Directive Response Recorded Date/ Time Advance Directives No March 1:51pm Advance Directive Response Recorded Date/ Time Advance Directives No March 2:51pm Additional Source Comments Care Teams (unrecognized sec tion and content) Team Status: Active Member Role Status Dates Jil Barba APRN [employer]-C Primary Care Provider Active Team Status: Active Member Role Status Dates Jil Barba APRN [employer]ER-C Primary Care Provider, Attending Provider Active Start: April 11, 2024 Team Status: Inactive Member Role Status Dates Jil Barba APRN [employer]ER-C Primary Care Provider, Attending Provider Active Start: April 13, 2024 End: April 13, 2024 Team Status: Inactive Member Role Status Dates Jil Barba APRN [employer]ER-C Primary Care Provider, Attending Provider Active Start: June 05, 2024 End: June 05, 2024 Team Status: Active Member Role Status Dates Jil Barba APRN [employer]ER-C Primary Care Provider, Attending Provider Active Start: June 19, 2024 Team Status: Inactive Member Role Status Dates Jil Barba APRN [employer]STITUTION [employer]ER-C Primary Care Provider, Attending Provider Active Start: June 26, 2024 End: June 26, 2024 Team Status: Inactive Member Role Status Dates Jil Barba APRN [employer]ER-C Primary Care Provider, Attending Provider Active Start: September 14, 2024 End: September 14, 2024 Goals (unrecognized section and content) Goals may be documented in a n alternate sectionGoals may be documented in an alternate sectionNot on filedocumented as of this encounterNot on filedocumented as of this encounterNot on filedocumented as of this encounterGoals may be documented in an alternate section Reason for Visit (unrecogniz ed section and content) Reason Onset Date Comments Med Refill 09/04/2024 FOR RECORDS PERTAINING TO PATIENTS WHO ARE OR HAVE BEEN ENROLLED IN A CHEMICAL DEPENDENCY/SUBSTANCEABUSE PROGRAM, SOME INFORMATION MAY BE OMITTED. This clinical summary was aggregated from multiple sources. Caution should be exercised in using it in the provision of clinical care. This summary normalizes information from multiple sources, and as a consequence, information in this document may materially change the coding, format and clinical context of patient data. In addition, data may be omitted in some cases. CLINICAL DECISIONS SHOULD BE BASED ON THE PRIMARY CLINICAL RECORDS. [email or web address] [facility]. provides no warranty or guarantee of the accuracy or completeness of information in this document.
== END 2024-12-07 09:13 | disposition home or self-care (01) ==
LOC: PM 09:13
PROVIDERS: PCP Nurse Practitioner Family; Visit Provider Anesthesiology
DX: M54.12 Radiculopathy, cervical region (principal); M47.812 Spondylosis without myelopathy or radiculopathy, cervical region; M79.18 Myalgia, other site
CPT/HCPCS: G0463

== ENCOUNTER 2024-12-25 08:36 | Day surgery (SDC) | payer OTHER, SELFPAY ==
--- OUTSIDE RECORDS SUMMARY | 2022-06-17 07:31 | XMS_ITS | Continuity of Care Document ---
Author Organization [facility] Address [address] [place] [phone] Phone Care Team Providers Care Senior Chemical Engineer Name Role Phone PCS, Other Non Billable Unavailable Unavaila ble Allergies, Adverse Reactions, Alerts Substance Reaction Status Criticality No Known allergies Procedures Procedure Date Billable Counseling RC Contraception RC STD Education RC Preconception RC HIV Education RC Other Medical PREV VISIT, NEW, AGE 18-39 Counselor Visit Only Comprehensive oral evaluation-new or est ablished P Intraoral-periapical first film 012 Intraoral-periapical each additional [place] m Bitewings-two films OFFICE/OUTPATIENT VISIT, NEW SMEAR, WET MOUNT, SALINE/INK BLOOD SEROLOGY, QUALITATIVE Counselor Visit Only As per patient privacy policy some of the clinical information may not be visible. Advance Directives Directive Yes / No Effective Date File Name No Information Encounters Encounter Description Practice Location Reason(s) For Visit Diagnoses Date Provider Providers Copied on Encounter [facility], [address] [place] [address], [id number], [place] tel:[phone] L Call Center No Information 3 PCS Other Non Billable. [address] [place] [address], [id number], [place]. tel:[phone] RC Contraception [facility], [address] [place] [address], [id number], tel: [phone] P ALMA Family Planning breast discharge (chief complaint) Initial Exam (chief complaint) contracept ion (chief complaint) Family planningInversion, nippleGynecologica l Examination 4 Kirk Khan. [address] [place] [address], [id number], [place]. tel:[phone] [facility], [address] [place] [address], [address], tel: [phone] C [facility] STD Clinic STI (chief complaint) Screening examination for venereal disease 4 [facility] Nurse. [address] [place] [address], [id number], [place]. tel:[phone] [facility], [address] [place] [address], [id number], tel: [phone] P BMB Dental No Information 2 Trey Laws. [address] [place] [address], [id number], [place]. tel:[phone] [facility], [address] [place] [address], [address], tel: [phone] P BMB General Medicine Screening examination for venereal disease 1 Jennifer Zaman. [address] [place] [address], [id number], [place]. tel:[phone] Family History Family Member Type Diagnosis Age At Onset Father Problem (finding) Diabetes mellitus Mother Problem (finding) Alive and well Payers Payer name Insurance type Covered democrat ID Authoriza tion(s) No Information Social History Type Description Quantity Date Captured Comments Alcohol Use Details Unknown Caffeine Use Details Unknown Tobacco Use Status Smoking Status No Information Sex Female Sexual Orientation Straight or heterosexual Gender Identity Choose not to disclose Chief Complaint And Reason For Visit No Information Plan Of Treatment Date Type Action Status Goal Depression screening. Due on due Goal Colonoscopy. Due on due Goal Dental exam. Due on due Goal Influenza vaccine. Due on due Goal Self Management Goals. Due o n due Goal Health Literacy. Due on due Goal FOBT. Due on due Goal Tdap. Due on due Goal Hep C [id number]. Due on due Goal Nutritional Screening Assess ment. Due on due Goal Pap/HPV testing. Due on due Goal FIT. Due on due Goal Hepatitis C screening. Due o n due Goal CT-Colonography. Due on due Goal HPV. Due on due Goal FIT-DNA. Due on due Goal Unhealthy drug use screening . Due on due Goal Tobacco cessation counseling completed Referral Ordered: US EXAM, BREAST(S) ordered Referral Ordered: Mammogram, Diagnostic, Bilateral ordered History Of Present Illness Encounter Date Complaint History Of Prese nt Illness contraception states using con doms and wishes to continue Initial Exam Currently pregna nt: no. The patient states she uses condoms, male for control. Last LMP was 10/10/2013. Negative for: breast lump(s) and breast pain. Positive for: breast discharge and breast self exam. Pertinent negatives include urinary urgency, vaginal discharge and vaginal itching. Diet 3+ meals a day. She does not take calcium. Additional information: HIV test offered and declined. PHQ2=0. pt states has peliv, pap with PMD - pt to bring copy of results. pt states wants to have gyne care with [facility]. breast discharge Location is lef t breast. The patient describes it as painless. Associated symptoms include discharge and greenish discharge. Pertinent negatives include breast pain. Additional information: Pt states she has noticed green discharge for almost 2 months now. Pt states she would like an order for a mammorgram. Pt states she has no pain on her breast. Pt also noticed her Left nipple inverted STI Additional infor radha: Patient denies any symptoms at this time, here just for STI screening, sent to [facility] per standing orders. Instructions Date Instruction Additional Infor radha Wear cotton underwear Related to Screening examination for venereal disease Abstain from sexual activity until results are known Related to Screening examination for venereal disease No douching Related to Scree christi examination for venereal disease Assessments Type Assessment Date No Information Patient Care Teams Name Effective Dates (start - stop) Status Members No Information
--- OUTSIDE RECORDS SUMMARY | 2024-12-25 08:39 | XMS_ITS | Clinical Summary ---
Author Organization [facility] Address [address], [address] [place] [address] Care Team Providers Care Refrigeration Lead Name Role Phone Artie Escobar DO Primary Care Provider Encounters Date Type Department Care Team Description 12/05/2024 2:00 PM EDT Procedure visit [facility] Physical Medicine and Rehabilitation [address] [place] [address] [address] [place] [address] Edson Art MD Numbness and tingling in both hands (Primary Dx); Neck pain from Last 3 Months Social History Tobacco Use Types Packs/Day Years Used Date Smoking Tobacco: Never Assessed Comments Unknown Sex and Gender Information Value Date Recorded Sex Assigned at Not on file Legal Sex Female 12:17 PM EDT Gender Identity Not on file Sexual Orientation Not on file Plan of Treatment Health Maintenance Due Date Last Done Comments Depression Screen 2000 Varicella vaccine (1 of 2 - 13+ 2-dose series) 2001 HIV screen 07/23/2003 Hepatitis C screen 2006 DTaP/Tdap/Td vaccine (1 - Tdap) 07/23/2007 Hepatitis B vaccine (1 of 3 - 19+ 3-dose series) 07/23/2007 Pap smear 2009 Cervical cancer screen 2018 HPV (without or with Pap) 2018 COVID-19 Vaccine ( - 2023-2 5 season) 2024 Flu vaccine (#1) 12/08/2024 HPV vaccine (No Doses Required) Completed Hepatitis A vaccine Aged Out No longe r eligible based on patient's age to complete this topic Hib vaccine Aged Out No longer eligi ble based on patient's age to complete this topic Meningococcal (ACWY) vaccine Aged Out No longer eligible based on patient's age to complete this topic Meningococcal B vaccine Aged Out No l onger eligible based on patient's age to complete this topic Pneumococcal 0-49 years Vaccine Aged Out No longer eligible based on patient's age to complete this topic Polio vaccine Aged Out No longer elig ible based on patient's age to complete this topic Procedures Procedure Name Priority Date/Time Associated Diagnosis Comments NEEDLE EMG EA EXTREMTY W/PARASPINL AREA COMPLETE Routine 12/06/2024 9:10 AM EDT Numbness and tingling in both hands MOTOR &/SENS 5-6 NRV CNDJ PRECONF ELTRODE LIMB Routine 12/06/2024 9:10 AM EDT Numbness and tingling in both hands from Last 3 Months Insurance [facility] Care Teams Refrigeration Lead Relationship Specialty Start Date End Date Artie Escobar DO [address] [place] [id number] PCP - General Internal Medicine 12/05/24
--- OUTSIDE RECORDS SUMMARY | 2024-12-25 08:39 | XMS_ITS | Clinical Summary ---
Author Organization [employer] [facility] tem Address [id number] [address] [place] [address] Care Team Providers Care Industrial Relations Counselor Name Role Phone Unavailable Primary Care Provider Unavailabl e Medications citalopram (CeleXA) 10 mg tablet Take 2 tablets (20 mg total) by mouth in the morning. 07/03/2024 Active amitriptyline (ELAVIL) 10 mg tabletIndicatio ns:Chronic fatigue One capsule at 8 PM each night 10 tablet 07/17/2024 Active Active Problems No known active problems Social History Tobacco Use Types Packs/Day Years [...] Encounters Date Type Department Care Team (Late Contact Info) Description 01/18/2025 2:30 PM EDT Procedure visit [facility] - Anthony Saez MD [facility] [place] [address] Anthony Saez MD [address] [facility] [address] [place] [address] [phone] (work) Health Maintenance Due Date Last Done Comments Depression Screening 2000 Tobacco Screening 2000 Adult BMI Screening 2006 DTaP,Tdap and Td Vaccines (1 - Tdap) 07/23/2007 Pap Smear 2009 Influenza Vaccine 01/08/2025 Medical Devices Not on file Insurance [employer]
[2024-12-25 08:46] VITALS: BP 132/85; PULSE 75; TEMP 36.2; O2SAT 99
--- OUTSIDE RECORDS SUMMARY | 2024-12-25 08:46 | XMS_ITS | CCD ---
Author Organization [facility] Care Team Providers Care Housing Installer Name Role Phone Unavailable Primary Care Provider [...] tablet Discontinued 10 MG PO Daily 30 30 June 05, 2024 1:00am June 26, [...] (Bld) [#/Vol] Automated basoph il count 0.0-0.1 [facility] Basophils/100 WBC Auto (Bld) on 06-19-2024 Basophils/100 WBC (Bld) Automated basophil % 0. 2-2.0 [facility] Centriole Ab [Titer] in Seru m by Immunofluorescenceon 06-19-2024 Centriole Ab IF (S) [Titer] Centriole Ab [Titer] in Serum by Immunofluorescence . [facility] Centromere Ab [Titer] in Ser um by Immunofluorescenceon 06-19-2024 Centromere Ab IF (S) [Titer] Centromere Ab [Titer] in Serum by Immunofluorescence . [facility] Eosinophils/100 WBC Auto (Bl d)on 06-19-2024 Eosinophils/100 WBC (Bld) Automated eosinophil % 0.9-7.0 [facility] Erythrocyte distribution wid th Auto (RBC) [Ratio]on 06-19-2024 Erythrocyte distribution width (RBC) [Ratio] Erythrocyte distribution width [Ratio] by Automated count 11.0-15.0 [facility] Estimated glomerular filtrat ion rate (GFR) non- Americanon 06-19-2024 GFR/1.73 sq M.predicted among non-blacks MDRD (S/P/Bld) [Vol rate/Area] Estimated glomerular filtration rate (GFR) non- >=60 mL/min/1.73m 2 [facility] Globulin Calc (S) [Mass/Vol] on 06-19-2024 Globulin (S) [Mass/Vol] Serum globulin measurement by calculation (mass/volume) [facility] Hematocrit Auto (Bld) [Volum e fraction]on 06-19-2024 Hematocrit (Bld) [Volume fraction] Hematocrit [Volume Fraction] of Blood by Automated count 36.0-48.0 [facility] Hemoglobin [Mass/volume] in Bloodon 06-19-2024 Hemoglobin (Bld) [Mass/Vol] Hemoglobin [Mass/volume] in Blood 12.0-16.0 [facility] Iron binding capacity [Mass/ volume] in Serum or Plasmaon 06-19-2024 Iron binding capacity [Mass/Vol] Iron binding capacity [Mass/volume] in Serum or Plasma 250.0-450.0 [facility] Iron saturation [Mass Fracti on] in Serum or Plasmaon 06-19-2024 Iron saturation [Mass fraction] Iron saturation [Mass Fraction] in Serum or Plasma [facility] Laboratory - Chemistry and C hemistry - challengeon 06-19-2024 Albumin [Mass/Vol] 4.0 g/dL 3.4-5.0 [facility] ALP [Catalytic activity/Vol] 69 U/L 46-116 [facility] ALT [Catalytic activity/Vol] 22 U/L 14-59 [facility] AST [Catalytic activity/Vol] 13 U/L Low 15-37 [facility] Bilirubin [Mass/Vol] 0.6 mg/dL 0.2-1.0 [facility] Calcium [Mass/Vol] 9.0 mg/dL 8.5-10.1 [facility] Chloride [Moles/Vol] 100 mmol/L 98-107 [facility] CO2 [Moles/Vol] 29.0 mmol/L 21.0-32.0 [facility] Cobalamin (Vitamin B12) [Mass/Vol] 416 pg/mL 232-1245 [facility] Comment on above: Performed at: - L [address] [id number] Director: Jose F Mcdonald PhD, Phone: [phone] Creatinine [Mass/Vol] 0.78 mg/dL 0.55-1.[address] [facility] GFR/1.73 sq M.predicted MDRD (S/P/Bld) [Vol rate/Area] mL/min/{1.73_m2} >=60 mL/min/1.73m 2 [facility] Glucose [Mass/Vol] 83 mg/dL 74-106 [facility] Iron [Mass/Vol] 144.0 ug/dL 50.0-170.0 [facility] Potassium [Moles/Vol] 3.8 mmol/L 3.5-5.[address] [facility] Protein [Mass/Vol] 7.4 g/dL 6.4-8.2 [facility] Sodium [Moles/Vol] 137 mmol/L 136-145 [facility] TSH Qn 0.613 m[IU]/L 0.358-3.740 [facility] Urea nitrogen [Mass/Vol] 12.0 mg/dL 7.0-18.0 [facility] Urea nitrogen/Creatinine [Mass ratio] 15.4 mg/mg [facility] Laboratory - Hematology and Cell countson 06-19-2024 ESR (Bld) [Velocity] 5 mm/h <=20 [facility] Immature granulocytes/100 WBC (Bld) 0.1 % 0.0-0.5 [facility] Leukocytes [#/volume] correc herb for nucleated erythrocytes in Blood by Automated counon 06-19-2024 WBC corrected for nucl RBC Auto (Bld) [#/Vol] Leukocytes [#/volume] corrected for nucleated erythrocytes in Blood by Automated coun 4.0-11.0 [facility] Lymphocytes Auto (Bld) [#/Vo l]on 06-19-2024 Lymphocytes (Bld) [#/Vol] Lymphocytes [#/volume] in Blood by Automated count 1.2-3.8 [facility] Lymphocytes/100 WBC Auto (Bl d)on 06-19-2024 Lymphocytes/100 WBC (Bld) Lymphocytes/100 leukocytes in Blood by Automated count 20.5-60.0 [facility] MCH Auto (RBC) [Entitic mass ]on 06-19-2024 MCH (RBC) [Entitic mass] MCH [Entitic ma ss] by Automated count 26.7-34.0 [facility] MCHC Auto (RBC) [Mass/Vol]on 06-19-2024 MCHC (RBC) [Mass/Vol] MCHC [Mass/volume] by Automated count 29.9-35.2 [facility] MCV Auto (RBC) [Entitic vol] on 06-19-2024 MCV (RBC) [Entitic vol] MCV [Entitic vol ume] by Automated count 81.0-99.0 [facility] Midbody Ab [Titer] in Serum by Immunofluorescenceon 06-19-2024 Midbody Ab IF (S) [Titer] Midbody Ab [Titer] in Serum by Immunofluorescence . [facility] Mitotic spindle apparatus Ab [Titer] in Serum or Plasma by Immunofluorescenceon 06-19-2024 Mitotic spindle apparatus Ab IF [Titer] Mitotic spindle apparatus Ab [Titer] in Serum or Plasma by Immunofluorescence . [facility] Monocytes Auto (Bld) [#/Vol] on 06-19-2024 Monocytes (Bld) [#/Vol] Automated blood monocyte count 0.3-0.8 [facility] Monocytes/100 WBC Auto (Bld) on 06-19-2024 Monocytes/100 WBC (Bld) Automated monocyte % 1. 7-12.0 [facility] Neutrophils Auto (Bld) [#/Vo l]on 06-19-2024 Neutrophils (Bld) [#/Vol] Neutrophils [#/volume] in Blood by Automated count 1.4-6.5 [facility] Neutrophils/100 WBC Auto (Bl d)on 06-19-2024 Neutrophils/100 WBC (Bld) Automated neutrophil % 43.0-75.0 [facility] No Panel Informationon 06-19 25-Hydroxy Vitamin D Total 18.5 ng/mL [facility] Comment on above: <20 ng/mL Vit D defi cient20-<30 ng/mL Vit D [id number] ng/mL Vit D sufficient>100 ng/mL Potential Toxicity Anti-Nuclear Antibody Comment 2 Comment . [facility] Comment on above: Pattern Potential Di sease Association Homogeneous Systemic Lupus Erythematosus, Drug Induced Systemic Lupus Erythematosus, Chronic Autoimmune hepatitis, Juvenile Idiopathic Arthritis Speckled Sjogren Syndrome, Systemic Lupus Erythematosus, Subacute Cutaneous Lupus, Lupus, Congenital Heart Block, Mixed Connective Tissue Disease, Scleroderma-diffuse, Scleroderma-Autoimmune Myositis Overlap Syndrome, Systemic Lupus Whxvlulwyetff-Ygqdvawjjnz-Pelnusyxaa Myositis Overlap Syndrome, Systemic Autoimmune Rheumatic Disease, [...] Cytopenias, Linear Scleroderma, Antiphospholipid Syndrome Performed at: [facility] [address] [id number] Director: Jose F Mcdonald PhD, Phone: [phone] C-Reactive Protein, Quantitative <0.50 mg/dL <=0.50 [facility] Eosinophils # (Auto) 0.1 10 3/uL 0.0-0.[address] [facility] Immature Granulocyte # (Auto) 0.01 10 3/uL 0.00-0.03 [facility] Nuclear dots nuclear Ab andrey melecio [Titer] in Serum by Immunofluorescenceon 06-19-2024 Nuclear dots nuclear Ab pattern IF (S) [Titer] Nuclear dots nuclear Ab pattern [Titer] in Serum by Immunofluorescence . [facility] Nuclear membrane pores nucle ar Ab pattern [Titer] in Serum by Immunofluorescenceon 06-19-2024 Nuclear membrane pores nuclear Ab pattern IF (S) [Titer] Nuclear membrane pores nuclear Ab pattern [Titer] in Serum by Immunofluorescence . [facility] PCNA extractable nuclear Ab [Titer] in Serum by Immunofluorescenceon 06-19-2024 PCNA extractable nuclear Ab IF (S) [Titer] PCNA extractable nuclear Ab [Titer] in Serum by Immunofluorescence . [facility] Platelet mean volume Auto (B ld) [Entitic vol]on 06-19-2024 Platelet mean volume (Bld) [Entitic vol] Platelet mean volume [Entitic volume] in Blood by Automated count Low 9.5-13.5 [facility] Platelets Auto (Bld) [#/Vol] on 06-19-2024 Platelets (Bld) [#/Vol] Platelets [#/vol ume] in Blood by Automated count 150-450 [facility] RBC Auto (Bld) [#/Vol]on RBC (Bld) [#/Vol] Erythrocytes [#/volume] in Blood by Automated count 4.20-5.40 [facility] Serum homogeneous pattern an tinuclear antibody (NEHEMIAS) titeron 06-19-2024 Homogenous nuclear Ab pattern (S) [Titer] Serum homogeneous pattern antinuclear antibody (NEHEMIAS) titer . [facility] Serum nuclear antibody titer on 06-19-2024 Nuclear Ab (S) [Titer] Serum nuclear ant ibody titer Abnormal . [facility] Comment on above: Negative <1:80 Borde rline 1:80 Positive >1:80 Serum nucleolar pattern anti nuclear antibody (NEHEMIAS) titeron 06-19-2024 Nucleolar nuclear Ab pattern (S) [Titer] Serum nucleolar pattern antinuclear antibody (NEHEMIAS) titer . [facility] Serum or plasma albumin/glob ulin mass ratioon 06-19-2024 Albumin/Globulin [Mass ratio] Serum or plasma albumin/globulin mass ratio [facility] Serum or plasma anion gap de terminationon 06-19-2024 Anion gap [Moles/Vol] Serum or plasma an ion gap determination [facility] Serum speckled pattern antin uclear antibody (NEHEMIAS) titeron 06-19-2024 Speckled nuclear Ab pattern (S) [Titer] Serum speckled pattern antinuclear antibody (NEHEMIAS) titer . [facility] Comment on above: ICAP nomenclature: A C-2,4,5,29 Vital Signs Date Time Vital Sign Value Performing Clinician Hansi lity 09-14-2024 11:130400 Body height 157.48 cm [facility] 09-14-2024 11:13040 Body mass index (BMI) [Ratio] 27.1 kg/m2 [facility] 09-14-2024 11:130400 Body temperature 95.4 [degF] [facility] 09-14-2024 11:13040 Body weight 67.13 kg [facility] 09-14-2024 11:13-0400 Diastolic blood pressure 62 mm[Hg] [facility] 09-14-2024 11:13-0400 Heart rate 75 /min [facility] 09-14-2024 11:13-0400 SaO2% (BldA) [Mass fraction] 99 % [facility] 09-14-2024 11:13-0400 Systolic blood pressure 110 mm[Hg] [facility] 07-17-2024 12:05-0400 Body weight 68.04 kg Arielle Aiken MD Work Phone: [facility] 07-17-2024 12:05-0400 Diastolic blood pressure 78 mm[Hg] Arielle Aiken MD Work Phone: [facility] 07-17-2024 12:05-0400 Respiratory rate 18 /min Arielle Aiken MD Work Phone: [facility] 07-17-2024 12:05-0400 Systolic blood pressure 112 mm[Hg] Arielle Aiken MD Work Phone: [facility] 06-26-2024 13:05-0500 Body height 157.48 cm [facility] 06-26-2024 13:05-0500 Body mass index (BMI) [Ratio] 27.2 kg/m2 [facility] 06-26-2024 13:05-0500 Body weight 67.58 kg [facility] 06-26-2024 13:05-0500 Diastolic blood pressure 72 mm[Hg] [facility] 06-26-2024 13:05-0500 Heart rate 94 /min [facility] 06-26-2024 13:05-0500 SaO2% (BldA) [Mass fraction] 98 % [facility] 06-26-2024 13:05-0500 Systolic blood pressure 120 mm[Hg] [facility] 06-05-2024 13:07-0500 Body height 157.48 cm [facility] 06-05-2024 13:07-0500 Body mass index (BMI) [Ratio] 27.7 kg/m2 [facility] 06-05-2024 13:07-0500 Body temperature 96.8 [degF] [facility] 06-05-2024 13:07-0500 Body weight 68.71 kg [facility] 06-05-2024 13:07-0500 Diastolic blood pressure 78 mm[Hg] [facility] 06-05-2024 13:07-0500 Heart rate 86 /min [facility] 06-05-2024 13:07-0500 SaO2% (BldA) [Mass fraction] 98 % [facility] 06-05-2024 13:07-0500 Systolic blood pressure 126 mm[Hg] [facility] 04-13-2024 10:57-0500 Body height 157.48 cm [facility] 04-13-2024 10:57-0500 Body mass index (BMI) [Ratio] 28.2 kg/m2 [facility] 04-13-2024 10:57-0500 Body weight 70.02 kg [facility] 04-13-2024 10:57-0500 Diastolic blood pressure 82 mm[Hg] [facility] 04-13-2024 10:57-0500 Heart rate 89 /min [facility] 04-13-2024 10:57-0500 SaO2% (BldA) [Mass fraction] 98 % [facility] 04-13-2024 10:57-0500 Systolic blood pressure 120 mm[Hg] [facility] Encounters Encounter Date Encounter Type Care Provider Facility Start: 09-14-2024 End: 09-14-2024 ambulatory [facility] Work Phone: Start: 09-14-2024 End: 09-14-2024 Patient encounter procedure [facility] Work Phone: Start: 09-06-2024 End: 09-06-2024 Telephone encounter Jonathan Vargas MD Work Phone: [facility] Start: 09-04-2024 End: 09-04-2024 Refill Arielle Aiken MD Work Phone: [facility] Department of [facility] Comment on above: Cervical stenosis of spinal canal (Primary Dx) Start: 07-17-2024 End: 07-17-2024 Office outpatient new 45 minutes Arielle Aiken MD [facility] Comment on above: NEHEMIAS positive (Primar y Dx); Neuropathy; Chronic fatigue; Neck pain Start: 06-26-2024 End: 06-26-2024 ambulatory [facility] Work Phone: Start: 06-26-2024 End: 06-26-2024 Patient encounter procedure [facility] Work Phone: Start: 06-19-2024 Non-patient / Non-visit [facility] Work Phone: Start: 06-05-2024 End: 06-05-2024 ambulatory [facility] Work Phone: Start: 06-05-2024 End: 06-05-2024 Patient encounter procedure [facility] Work Phone: Start: 04-13-2024 Patient encounter status [facility] Start: 04-13-2024 End: 04-13-2024 Encounter for general adult medical examination without abnormal findings [facility] Start: 04-13-2024 End: 04-13-2024 Patient encounter procedure [facility] Work Phone: Start: 04-11-2024 Non-patient / Non-visit [facility] Work Phone: Plan of Treatment Date Care Activity Detail Author Start: 01-08-2025 Influenza vaccination Influenza Vacc ine [facility] Start: 10-23-2024 End: 10-23-2024 Patient encounter procedure 10/23/2024 12:00 PM EDT Office Visit [facility], A Department of [place] [phone] Arielle Aiken MD [address] [address] [facility] Start: 10-16-2024 End: 10-16-2024 Patient encounter procedure 10/16/2024 1:45 PM EDT Procedure visit [facility] - Anthony Saez MD [address] [place] [address] Anthony Saez MD [address] [facility] [address] [place] [address] [facility] - Anthony Saez MD Start: 09-04-2024 End: 09-04-2024 Patient encounter procedure 09/04/2024 12:45 PM EDT [facility] [address] [phone] Arielle Aiken MD [address] [address] [facility] Department of [facility] Start: 07-17-2024 End: 07-17-2025 MR Cervical spine WO contrast MR cervical spine without contrast Imaging Routine Neck pain Expected: 07/17/2024, Expires: 07/17/2025 [facility] Comment on above: Expected: 07/17/2024 , Expires: 07/17/2025 Start: 01-09-2024 Influenza vaccination Influenza Vacc ine [facility] Start: 2009 Screening for malign ant neoplasm of cervix Pap Smear [facility] Start: 07-23-2007 DTaP,Tdap and Td Vaccines (1 - Tdap) DTaP,Tdap and Td Vaccines (1 - Tdap) [facility] Start: 2006 Adult BMI Screening Adult BMI Screen ing [facility] Start: 2000 Depression Screening Depression Scre ening [facility] Start: 2000 Tobacco Screening Tobacco Screening [facility] Adenosine monophosphate.cyclic [Moles/volume] in Serum or Plasma [facility] End: 07-17-2025 Antinuclear Ab, HEp-2 Substrate, S Antinuclear Ab, HEp-2 Substrate, S Lab Routine NEHEMIAS positive 1 Occurrences starting 07/17/2024 until 07/17/2025 [employer] Work Phone: Comment on above: 1 Occurrences starti ng 07/17/2024 until 07/17/2025 Comprehensive metabo lic 2000 panel - Serum or Plasma [facility] End: 07-17-2025 EMG With NCV EMG With NCV Neurology Routine Neuropathy 1 Occurrences starting 07/17/2024 until 07/17/2025 [facility] Comment on above: 1 Occurrences starti ng 07/17/2024 until 07/17/2025 Rheumatoid factor [Units/volume] in Serum or Plasma [facility] XR Cervical spine 5 Views [facility] Payers Date Payer Category Payer Medicaid [id number] Medicaid [id number] Social History Date Type Detail Facility Start: 04-13-2024 End: 04-13-2024 Tobacco smoking status NHIS Never smoked tobacco (finding) [facility] Start: 06-05-2024 End: 09-14-2024 Sex Female (finding) [facility] Start: 1990 Sex Assigned At Female F [facility] Tobacco smoking status [facility] Tobacco smoking consumption unknown [facility] Start: 1990 Sex assigned at Not on file [facility] Gender identity Not on file [facility] Clinical Notes 04-13-2024 to 09-06-2024 Telephone [...] for this referral. documented in this encounter [facility] 09-06-2024 Telephone encount er Note Received referral. Dr Vargas reviewed actual films. Advised patient should try cervical epidural injections at C5-6 level. If she is not better after these injections she can call for appointment. Patient will call her PCP for this referral. [facility] 07-17-2024 History of Presen t illness Narrative Images from the original note were not included. [address] [phone] Date of Service: 07/17/2024 Subjective: Marlene Gonzales [...] on low-dose amitriptyline RTC 1 month Total [id number] time was 35 minutes with more than [...] or corrected. Thank you for your understanding. [facility] Dr. Arielle Aiken MD [address] [facility], [address] [place] [address] Office: [phone] documented in this encounter [facility] 06-26-2024 Evaluation note Diagnosis Onset Date Resolution Anxiety acute June 26, 2024 1:02pm Sleep disturbance acute 2024 1:02pm [facility] Work Phone: 1(176) 719-517012-05-2024 Evaluation note* Diagnosis Onset Date Resolution Status Admit Date Benign thyroid cyst acute Dece2023 10:40am Wellness examination acute 2023 10:40am Anxiety acute June 05, 2024 1:02pm Fatigue acute June 05, 2024 1:02pm Multiple joint complaints acute June 05, 2024 1:02pm Neck pain acute June 05, 2024 1:02pm Sleep disturbance acute June 05, 2024 1:02pm Vitamin B 12 deficiency acute J anuary 2024 1:02pm [facility] Work Phone: 1(135) 754-290612-05-2024 Evaluation note* Diagnosis Onset Date Resolution Status [...] Sleep disturbance acute Februar y 2024 1:02pm [facility] Work Phone: Evaluation note* Diagnosis NEHEMIAS positive- [...] Health SystemInstructionsNot on filedocumented in this encounter [facility] System Chief Complaint and Reason [...] Member Role Status Dates Jil Barba APRN [employer] SAL[employer]ERSON[employer]C Primary Care Provider Active Team Status: Active Member Role Status Dates Jil Barba APRN [employer] Primary Care Provider, Attending Provider Active Start: April 11, 2024 Team Status: Inactive Member Role Status Dates Jil Barba APRN [employer] Primary Care Provider, Attending Provider Active Start: April 13, 2024 End: April 13, 2024 Team Status: Inactive Member Role Status Dates Jil Barba APRN [employer]C Primary Care Provider, Attending Provider Active Start: June 05, 2024 End: June 05, 2024 Team Status: Active Member Role Status Dates Jil Barba APRN [employer]C Primary Care Provider, Attending Provider Active Start: June 19, 2024 Team Status: Inactive Member Role Status Dates Jil Barba APRN [employer]C Primary Care Provider, Attending Provider Active Start: June 26, 2024 End: June 26, 2024 Team Status: Inactive Member Role Status Dates Jil Barba APRN [employer]C Primary Care Provider, Attending Provider Active Start: [...] BE BASED ON THE PRIMARY CLINICAL RECORDS. [employer] [facility]. provides no warranty or guarantee of the accuracy or completeness of information in this document.
[2024-12-25 09:20] VITALS: BP 133/83; PULSE 80; O2SAT 98
[2024-12-25 09:21] VITALS: BP 124/74; PULSE 69; O2SAT 100
[2024-12-25] MEDS: BUPIVACAINE HCL 0.25% PF 25 MG/10 ML VIAL INJ (09:22)
[2024-12-25] MEDS: IOHEXOL 240 MG/ML - 10 ML VIAL 24 MG INJ (09:23)
[2024-12-25] MEDS: DEXAMETHASONE SOD PHOS 10 MG/ML VIAL INJ (09:23)
[2024-12-25] MEDS: LIDOCAINE HCL 2% 400 MG/20 ML MDV 3 ML INJ (09:23)
--- NOTE | 2024-12-25 09:25 | W.PM.PROCNOT ---
Date of procedure: 12/25/24 Pre-op diagnosis: M54.12 Post-op diagnosis: same as pre-op Procedure: Procedure: Bilateral C5-6 transforaminal epidural steroid injection Medications: Bupivacaine 0.25% 1cc, lidocaine 2% 1cc, dexamethasone 10mg The patient was seen and examined in the preoperative holding area.? Informed consent was obtained and placed on the chart.? Patient was brought to the medical procedure unit and placed in the prone position where a timeout was completed verifying the correct patient, procedure site, position, and planned special equipment using sterile aseptic technique.? Under direct fluoroscopic visualization a 25-gauge Quincke tipped spinal needle was advanced at level left C5-6 to the designated neural foramen where contrast dye was injected to show adequate spread.? There was no evidence of vascular or adverse uptake.? Epidural spread was appreciated.? The above-mentioned injectate was then placed in a 1.5 mL aliquot preceded by negative aspiration.? The needle was removed. The same procedure, at the same level, was completed on the opposite side. ? Patient was taken to the postprocedural recovery area and monitored for an appropriate length of time before found suitable for discharge in the accompaniment of a responsible adult. Anesthesia: Local Surgeon: Rose Mckeon Pathology: none sent Condition: stable Disposition: no change
== END 2024-12-25 09:30 | disposition home or self-care (01) ==
PROVIDERS: PCP Nurse Practitioner Family; Visit Provider Anesthesiology
DX: M54.12 Radiculopathy, cervical region (principal)
CPT/HCPCS: 64479; J0665; J1100; Q9966

== ENCOUNTER 2025-01-03 11:09 | Outpatient (OUT) | payer OTHER, SELFPAY ==
--- OUTSIDE RECORDS SUMMARY | 2025-01-03 11:11 | XMS_ITS | Clinical Summary ---
Author Organization [employer] [facility] tem Address [id number] [address] [place] [address] Care Team Providers Care Coil Winder Hand Name Role Phone Unavailable Primary Care Provider [...] [facility] - Anthony Saez MD [facility] [facility] [address] [place] [address] Anthony Saez MD [address] [facility] [address] [place] [address] [phone] (work) Health Maintenance Due Date Last Done Comments Depression Screening 2000 Tobacco Screening 2000 Adult BMI Screening 2006 DTaP,Tdap and Td Vaccines (1 - Tdap) 07/23/2007 Pap Smear 2009 Influenza Vaccine 01/08/2025 Medical Devices Not on file Insurance [employer]
--- NOTE | 2025-01-03 11:49 | P.CN_ITS ---
Consult Note: HPI Data of Consult Patient: known to practice within the last 3 years Requesting Physician: Nida Sanders NP Primary Care Provider: NIA WILSON Consult Narrative Reason for consult: neck pain Narrative: Marlene valencia pleasant 34 year old female presents for evaluation of chronic neck pain and BUE > 12 months unresponsive to HEP greater than 6 weeks, heat, ice, tylenol, nsaids. recent cervical MRI consistent with multilevel stenosis and spondylosis most significant C5-7. 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 Pain today 0/10 sharp aching heavy increasing to 10/10 intermittently. recently underwent bilateral C5-6 TFESI with minimal relief per pt cc:: CC: Nida Sanders NP Review of Systems ROS Musculoskeletal Reports: neck pain and extremity pain Meds Home Medications and Allergies Home Medications ?Medication ?Instructions ?Recorded ?Confirmed ?Type citalopram 10 mg tablet 10 mg PO DAILY 12/07/2412/08 History magnesium glycinate 120 mg (as 240 mg PO HS 12/07/24 0 12/25/24 History glycinate) capsule Allergies Allergy/AdvReac Type Severity Reaction Status Date / Time No Known Drug Allergies Allergy Verified 12/25/24 08:49 Exam Constitutional Documenting provider has reviewed patient's vital signs: yes Common normals: no apparent distress, oriented x3, healthy appearing, alert and well nourished General appearance: cooperative [facility] Common normals: normocephalic, hearing grossly normal bilaterally and moist oral mucous membranes Head and scalp: normocephalic Eye Common normals: PERRL Pupil: PERRL Neck & C-Spine Common normals: full ROM General: normal visual inspection Cervical spine: cervical ROM abnormal, pain with cervical ROM, loss of normal cervical lordosis and cervical spine tenderness Other: positive spurlings decreased sensation bilateral C5,6,7 strength 4/5 in BUE Chest Common normals: inspection of chest normal Respiratory Common normals: normal respiratory effort, no retractions and no use of accessory muscles Neuro Common normals: oriented x3 Sensorium/orientation: alert Psych Common normals: mental status grossly normal, thought process normal, navya ative, affect normal, speech normal and activity/motor behavior normal Speech: normal speech Thought process: normal thought process Results Imaging cervical xray: Attestation: I have reviewed the pertinent imaging results. Radiologist's impression: FINDINGS: BONES: Normal alignment with no acute fracture or spondylolisthesis. Mild to moderate spondylosis C5-C6 DISC SPACES: Normal. No significant disc height narrowing, subluxation, or endplate abnormality. PARASPINOUS: Negative. No paraspinous abnormality is seen. OTHER: Negative. Additional Findings Additional findings: If on a controlled substance or opioids, I have checked an [place] report on this patient and there are no aberrancies noted in the prescribing history.??If on a controlled substance or opioid a drug screen was completed and reviewed within the last year, and if there has not been a drug screen completed we ordered one today to monitor higher risk, state monitored pain medication use. As part of providing excellent, safe, comprehensive care, the following was completed at our patient's visit: 1. A medication reconciliation and review to ensure accurate knowledge of current/active medications, including asking our patients to inform us about any [id number] medications or herbal remedies/nutritional supplemen ts/alternative remedies. 2. A review to specifically ensure our patients have had annual screening for screening for depression, screening for tobacco use, and screening for unhealthy alcohol use. For concerning screenings had a discussion with the patient, provided patient education, and recommended follow-up with primary care provider when appropriate. If patient noted with a risk of falling, they received education on strength, gait, and balance training to prevent future risk of falling. Portions of this note may have been carried over from the previous visit and updated as appropriate. Please note this office utilizes paper charting in addition to the electronic medical record. A list of current medications, vitals, and PMH is available there as the clinical staff outside of myself do not have access to [facility] charting during the clinic day operations. As part of providing quality comprehensive care the current medications, vitals, and PMH were reviewed in the paper chart. Assessment and Plan Assessment and Plan (1) Cervical spinal stenosis: Assessment and Plan: The patient has had over 3 months of moderate to severe neck and BUE pain with functional impairment and inadequate response to conservative care including NSAIDS (unless there are contraindication such as concurrent blood thinners), multiple oral or topical pain medications, and home exercise program/physical therapy.? Patient has completed >6 weeks of guided home exercise program and/or formal physical therapy program without relief of their symptoms.? The Oswestry Disability Index was completed, and the patient scored a 12%.? The patient noted the following:?? moderate to severe pain with ADLs and sleep We discussed the risks and benefits of the procedure with the patient, and we are NOT planning on using sedation as outlined in the guidelines from Medicare unless there is a documented reason that sedation would be strongly recommended.?? ?The procedure will be completed with fluoroscopic guidance.? (2) Cervical radiculopathy: (3) Cervical spondylosis: (4) Myalgia, other site: Plan bilateral C6-7 TFESI under fluoroscopy declining NS consultation declining gabapentin/lyrica due to potential side effects trial baclofen 5-10mg bid prn pain/spasms f/u 2 weeks after injection with Dr Mckeon for further evaluation
--- OUTSIDE RECORDS SUMMARY | 2025-01-03 11:50 | XMS_ITS | CCD ---
Author Organization [facility] Care Team Providers Care Quality Assurance Practice Manager Name Role Phone Unavailable Primary Care Provider Pennie Mckeon MD, Rose Carroll Attending Unavailable Medications Current Medications Medication Drug Class(es) Dates [...] 11:31am Start: 07-03-2024 take 2 tablets by [facility] in the morning citalopram (CeleXA) 10 mg [...] (Bld) [#/Vol] Automated basoph il count 0.0-0.1 [facility] Basophils/100 WBC Auto (Bld) on 06-19-2024 Basophils/100 WBC (Bld) Automated basophil % 0. 2-2.0 [facility] Centriole Ab [Titer] in Seru m by Immunofluorescenceon 06-19-2024 Centriole Ab IF (S) [Titer] Centriole Ab [Titer] in Serum by Immunofluorescence . [facility] Centromere Ab [Titer] in Ser um by Immunofluorescenceon 06-19-2024 Centromere Ab IF (S) [Titer] Centromere Ab [Titer] in Serum by Immunofluorescence . [facility] Eosinophils/100 WBC Auto (Bl d)on 06-19-2024 Eosinophils/100 WBC (Bld) Automated eosinophil % 0.9-7.0 [facility] Erythrocyte distribution wid th Auto (RBC) [Ratio]on 06-19-2024 Erythrocyte distribution width (RBC) [Ratio] Erythrocyte distribution width [Ratio] by Automated count 11.0-15.0 [facility] Estimated glomerular filtrat ion rate (GFR) non- Americanon 06-19-2024 GFR/1.73 sq M.predicted among non-blacks MDRD (S/P/Bld) [Vol rate/Area] Estimated glomerular filtration rate (GFR) non- >=60 mL/min/1.73m 2 [facility] Globulin Calc (S) [Mass/Vol] on 06-19-2024 Globulin (S) [Mass/Vol] Serum globulin measurement by calculation (mass/volume) [facility] Hematocrit Auto (Bld) [Volum e fraction]on 06-19-2024 Hematocrit (Bld) [Volume fraction] Hematocrit [Volume Fraction] of Blood by Automated count 36.0-48.0 [facility] Hemoglobin [Mass/volume] in Bloodon 06-19-2024 Hemoglobin (Bld) [Mass/Vol] Hemoglobin [Mass/volume] in Blood 12.0-16.0 [facility] Iron binding capacity [Mass/ volume] in Serum or Plasmaon 06-19-2024 Iron binding capacity [Mass/Vol] Iron binding capacity [Mass/volume] in Serum or Plasma 250.0-450.0 [facility] Iron saturation [Mass Fracti on] in Serum or Plasmaon 06-19-2024 Iron saturation [Mass fraction] Iron saturation [Mass Fraction] in Serum or Plasma [facility] Laboratory - Chemistry and C hemistry - challengeon 06-19-2024 Albumin [Mass/Vol] 4.0 g/dL 3.4-5.0 [facility] ALP [Catalytic activity/Vol] 69 U/L 46-116 [facility] ALT [Catalytic activity/Vol] 22 U/L 14-59 [facility] AST [Catalytic activity/Vol] 13 U/L Low 15-37 [facility] Bilirubin [Mass/Vol] 0.6 mg/dL 0.2-1.0 [facility] Calcium [Mass/Vol] 9.0 mg/dL 8.5-10.1 [facility] Chloride [Moles/Vol] 100 mmol/L 98-107 [facility] CO2 [Moles/Vol] 29.0 mmol/L 21.0-32.0 [facility] Cobalamin (Vitamin B12) [Mass/Vol] 416 pg/mL 232-1245 [facility] Comment on above: Performed at: - [email or web address] [address] [id number] Director: Jose F Mcdonald PhD, Phone: [phone] Creatinine [Mass/Vol] 0.78 mg/dL 0.55-1.02 [facility] GFR/1.73 sq M.predicted MDRD (S/P/Bld) [Vol rate/Area] mL/min/{1.73_m2} >=60 mL/min/1.73m 2 [facility] Glucose [Mass/Vol] 83 mg/dL 74-106 [facility] Iron [Mass/Vol] 144.0 ug/dL 50.0-170.0 [facility] Potassium [Moles/Vol] 3.8 mmol/L 3.5-5.1 [facility] Protein [Mass/Vol] 7.4 g/dL 6.4-8.2 [facility] Sodium [Moles/Vol] 137 mmol/L 136-145 [facility] TSH Qn 0.613 m[IU]/L 0.358-3.740 [facility] Urea nitrogen [Mass/Vol] 12.0 mg/dL 7.0-18.0 [facility] Urea nitrogen/Creatinine [Mass ratio] 15.4 mg/mg [facility] Laboratory - Hematology and Cell countson 06-19-2024 ESR (Bld) [Velocity] 5 mm/h <=20 [facility] Immature granulocytes/100 WBC (Bld) 0.1 % 0.0-0.5 [facility] Leukocytes [#/volume] correc herb for nucleated erythrocytes in Blood by Automated counon 06-19-2024 WBC corrected for nucl RBC Auto (Bld) [#/Vol] Leukocytes [#/volume] corrected for nucleated erythrocytes in Blood by Automated coun 4.0-11.0 [facility] Lymphocytes Auto (Bld) [#/Vo l]on 06-19-2024 Lymphocytes (Bld) [#/Vol] Lymphocytes [#/volume] in Blood by Automated count 1.2-3.8 [facility] Lymphocytes/100 WBC Auto (Bl d)on 06-19-2024 Lymphocytes/100 WBC (Bld) Lymphocytes/100 leukocytes in Blood by Automated count 20.5-60.0 [facility] MCH Auto (RBC) [Entitic mass ]on 06-19-2024 MCH (RBC) [Entitic mass] MCH [Entitic ma ss] by Automated count 26.7-34.0 [facility] MCHC Auto (RBC) [Mass/Vol]on 06-19-2024 MCHC (RBC) [Mass/Vol] MCHC [Mass/volume] by Automated count 29.9-35.2 [facility] MCV Auto (RBC) [Entitic vol] on 06-19-2024 MCV (RBC) [Entitic vol] MCV [Entitic vol ume] by Automated count 81.0-99.0 [facility] Midbody Ab [Titer] in Serum by Immunofluorescenceon 06-19-2024 Midbody Ab IF (S) [Titer] Midbody Ab [Titer] in Serum by Immunofluorescence . [facility] Mitotic spindle apparatus Ab [Titer] in Serum or Plasma by Immunofluorescenceon 06-19-2024 Mitotic spindle apparatus Ab IF [Titer] Mitotic spindle apparatus Ab [Titer] in Serum or Plasma by Immunofluorescence . [facility] Monocytes Auto (Bld) [#/Vol] on 06-19-2024 Monocytes (Bld) [#/Vol] Automated blood monocyte count 0.3-0.8 [facility] Monocytes/100 WBC Auto (Bld) on 06-19-2024 Monocytes/100 WBC (Bld) Automated monocyte % 1. 7-12.0 [facility] Neutrophils Auto (Bld) [#/Vo l]on 06-19-2024 Neutrophils (Bld) [#/Vol] Neutrophils [#/volume] in Blood by Automated count 1.4-6.5 [facility] Neutrophils/100 WBC Auto (Bl d)on 06-19-2024 Neutrophils/100 WBC (Bld) Automated neutrophil % 43.0-75.0 [facility] No Panel Informationon 06-19 25-Hydroxy Vitamin D Total 18.5 ng/mL [facility] Comment on above: <20 ng/mL Vit D defi cient20-<30 ng/mL Vit D cryvcszveauz07-740 ng/mL Vit D sufficient>100 ng/mL Potential Toxicity Anti-Nuclear Antibody Comment 2 Comment . [facility] Comment on above: Pattern Potential Di sease Association Homogeneous Systemic Lupus Erythematosus, Drug Induced Systemic Lupus Erythematosus, Chronic Autoimmune hepatitis, Juvenile Idiopathic Arthritis Speckled Sjogren Syndrome, Systemic Lupus Erythematosus, Subacute Cutaneous Lupus, Lupus, Congenital Heart Block, Mixed Connective Tissue Disease, Scleroderma-diffuse, Scleroderma-Autoimmune Myositis Overlap Syndrome, Systemic Lupus Oxijlxwdlerlw-Wfryqhssfcn-Uhnpjpiojl Myositis Overlap Syndrome, Systemic Autoimmune Rheumatic Disease, [...] Cytopenias, Linear Scleroderma, Antiphospholipid Syndrome Performed at: [email or web address] [address] [id number] Director: Jose F Mcdonald PhD, Phone: [phone] C-Reactive Protein, Quantitative <0.50 mg/dL <=0.50 [facility] Eosinophils # (Auto) 0.1 10 3/uL 0.0-0.7 [facility] Immature Granulocyte # (Auto) 0.01 10 3/uL 0.00-0.03 [facility] Nuclear dots nuclear Ab andrey melecio [Titer] in Serum by Immunofluorescenceon 06-19-2024 Nuclear dots nuclear Ab pattern IF (S) [Titer] Nuclear dots nuclear Ab pattern [Titer] in Serum by Immunofluorescence . [facility] Nuclear membrane pores nucle ar Ab pattern [Titer] in Serum by Immunofluorescenceon 06-19-2024 Nuclear membrane pores nuclear Ab pattern IF (S) [Titer] Nuclear membrane pores nuclear Ab pattern [Titer] in Serum by Immunofluorescence . [facility] PCNA extractable nuclear Ab [Titer] in Serum by Immunofluorescenceon 06-19-2024 PCNA extractable nuclear Ab IF (S) [Titer] PCNA extractable nuclear Ab [Titer] in Serum by Immunofluorescence . [facility] Platelet mean volume Auto (B ld) [Entitic vol]on 06-19-2024 Platelet mean volume (Bld) [Entitic vol] Platelet mean volume [Entitic volume] in Blood by Automated count Low 9.5-13.5 [facility] Platelets Auto (Bld) [#/Vol] on 06-19-2024 Platelets (Bld) [#/Vol] Platelets [#/vol ume] in Blood by Automated count 150-450 [facility] RBC Auto (Bld) [#/Vol]on RBC (Bld) [#/Vol] Erythrocytes [#/volume] in Blood by Automated count 4.20-5.40 [facility] Serum homogeneous pattern an tinuclear antibody (NEHEMIAS) titeron 06-19-2024 Homogenous nuclear Ab pattern (S) [Titer] Serum homogeneous pattern antinuclear antibody (NEHEMIAS) titer . [facility] Serum nuclear antibody titer on 06-19-2024 Nuclear Ab (S) [Titer] Serum nuclear ant ibody titer Abnormal . [facility] Comment on above: Negative <1:80 Borde rline 1:80 Positive >1:80 Serum nucleolar pattern anti nuclear antibody (NEHEMIAS) titeron 06-19-2024 Nucleolar nuclear Ab pattern (S) [Titer] Serum nucleolar pattern antinuclear antibody (NEHEMIAS) titer . [facility] Serum or plasma albumin/glob ulin mass ratioon 06-19-2024 Albumin/Globulin [Mass ratio] Serum or plasma albumin/globulin mass ratio [facility] Serum or plasma anion gap de terminationon 06-19-2024 Anion gap [Moles/Vol] Serum or plasma an ion gap determination [facility] Serum speckled pattern antin uclear antibody (NEHEMIAS) titeron 06-19-2024 Speckled nuclear Ab pattern (S) [Titer] Serum speckled pattern antinuclear antibody (NEHEMIAS) titer . [facility] Comment on above: ICAP nomenclature: A C-2,4,5,29 Vital Signs Date Time Vital Sign Value Performing Clinician Michael bailon 09-14-2024 11:130400 Body height 157.48 cm [facility] 09-14-2024 11:130400 Body mass index (BMI) [Ratio] 27.1 kg/m2 [facility] 09-14-2024 11:130400 Body temperature 95.4 [degF] [facility] 09-14-2024 11:13-0400 Body weight 67.13 kg [facility] 09-14-2024 11:13-0400 Diastolic blood pressure 62 mm[Hg] [facility] 09-14-2024 11:13-0400 Heart rate 75 /min [facility] 09-14-2024 11:13-0400 SaO2% (BldA) [Mass fraction] 99 % [facility] 09-14-2024 11:13-0400 Systolic blood pressure 110 mm[Hg] [facility] 07-17-2024 12:05-0400 Body weight 68.04 kg Arielle Aiken MD Work Phone: [place] 07-17-2024 12:05-0400 Diastolic blood pressure 78 mm[Hg] Arielle Aiken MD Work Phone: [place] 07-17-2024 12:05-0400 Respiratory rate 18 /min Arielle Aiken MD Work Phone: [place] 07-17-2024 12:05-0400 Systolic blood pressure 112 mm[Hg] Arielle Aiken MD Work Phone: [place] 06-26-2024 13:05-0500 Body height 157.48 cm [facility] 06-26-2024 13:05-0500 Body mass index (BMI) [Ratio] 27.2 kg/m2 [facility] 06-26-2024 13:05-0500 Body weight 67.58 kg [facility] 06-26-2024 13:05-0500 Diastolic blood pressure 72 mm[Hg] [facility] 06-26-2024 13:05-0500 Heart rate 94 /min [facility] 06-26-2024 13:05-0500 SaO2% (BldA) [Mass fraction] 98 % [facility] 06-26-2024 13:05-0500 Systolic blood pressure 120 mm[Hg] [facility] 06-05-2024 13:07-0500 Body height 157.48 cm [facility] 06-05-2024 13:07-0500 Body mass index (BMI) [Ratio] 27.7 kg/m2 [facility] 06-05-2024 13:07-0500 Body temperature 96.8 [degF] [facility] 06-05-2024 13:07-0500 Body weight 68.71 kg [facility] 06-05-2024 13:07-0500 Diastolic blood pressure 78 mm[Hg] [facility] 06-05-2024 13:07-0500 Heart rate 86 /min [facility] 06-05-2024 13:07-0500 SaO2% (BldA) [Mass fraction] 98 % [facility] 06-05-2024 13:07-0500 Systolic blood pressure 126 mm[Hg] [facility] 04-13-2024 10:57-0500 Body height 157.48 cm [facility] 04-13-2024 10:57-0500 Body mass index (BMI) [Ratio] 28.2 kg/m2 [facility] 04-13-2024 10:57-0500 Body weight 70.02 kg [facility] 04-13-2024 10:57-0500 Diastolic blood pressure 82 mm[Hg] [facility] 04-13-2024 10:57-0500 Heart rate 89 /min [facility] 04-13-2024 10:57-0500 SaO2% (BldA) [Mass fraction] 98 % [facility] 04-13-2024 10:57-0500 Systolic blood pressure 120 mm[Hg] [facility] Encounters Encounter Date Encounter Type Care Provider Facility Start: 12-25-2024 End: 12-25-2024 ambulatory Rose Mckeon MD Facility:[facility] Start: 09-14-2024 End: 09-14-2024 ambulatory [facility] Work Phone: Start: 09-14-2024 End: 09-14-2024 [facility] encounter procedure [facility] Work Phone: Start: 09-06-2024 End: 09-06-2024 Telephone encounter Jonathan Vargas MD Work Phone: [facility] [place] [facility] Start: 09-04-2024 End: 09-04-2024 Refill Arielle Aiken MD Work Phone: [facility] [place] [facility] Comment on above: Cervical stenosis of spinal canal (Primary Dx) Start: 07-17-2024 End: 07-17-2024 Office outpatient new 45 minutes Arielle Aiken MD Work Phone: [facility] [place] [facility] Comment on above: NEHEMIAS positive (Primar y Dx); Neuropathy; Chronic fatigue; Neck pain Start: 06-26-2024 End: 06-26-2024 ambulatory [facility] Work Phone: Start: 06-26-2024 End: 06-26-2024 Patient encounter procedure [facility] Work Phone: Start: 06-19-2024 Non-patient / Non-visit [facility] Work Phone: Start: 06-05-2024 End: 06-05-2024 ambulatory [facility] Work Phone: Start: 06-05-2024 End: 06-05-2024 Patient encounter procedure [facility] Work Phone: Start: 04-13-2024 Patient encounter status [facility] Start: 04-13-2024 End: 04-13-2024 Encounter for general adult medical examination without abnormal findings [facility] Start: 04-13-2024 End: 04-13-2024 Patient encounter procedure [facility] Work Phone: Start: 04-11-2024 Non-patient / Non-visit [facility] Work Phone: Plan of Treatment Date Care Activity Detail Author Start: 01-08-2025 Influenza vaccination Influenza Vacc ine [place] Start: 10-23-2024 End: 10-23-2024 Patient encounter procedure 10/23/2024 12:00 PM EDT [facility] [address] [phone] Arielle Aiken MD [address] [address] [facility] Start: 10-16-2024 End: 10-16-2024 Patient encounter procedure 10/16/2024 1:45 PM EDT Procedure visit [facility] - Anthony Saez MD [facility] [phone] Anthony Saez MD [address] [place] [address] [facility] - Anthony Saez MD Start: 09-04-2024 End: 09-04-2024 Patient encounter procedure 09/04/2024 12:45 PM EDT [facility] [address] [place] [phone] Arielle Aiken MD [address] [place] [address] [facility] Start: 07-17-2024 End: 07-17-2025 MR Cervical spine WO contrast MR cervical spine without contrast Imaging Routine Neck pain Expected: 07/17/2024, Expires: 07/17/2025 [place] Comment on above: Expected: 07/17/2024 , Expires: 07/17/2025 Start: 01-09-2024 Influenza vaccination Influenza Vacc ine [place] Start: 2009 Screening for malign ant neoplasm of cervix Pap Smear [place] Start: 07-23-2007 DTaP,Tdap and Td Vaccines (1 - Tdap) DTaP,Tdap and Td Vaccines (1 - Tdap) [facility] [place] [facility] Start: 2006 Adult BMI Screening Adult BMI Screen ing [place] Start: 2000 Depression Screening Depression Scre ening [place] Start: 2000 Tobacco Screening Tobacco Screening [place] Adenosine monophosphate.cyclic [Moles/volume] in Serum or Plasma [facility] End: 07-17-2025 Antinuclear Ab, HEp-2 Substrate, S Antinuclear Ab, HEp-2 Substrate, S Lab Routine NEHEMIAS positive 1 Occurrences starting 07/17/2024 until 07/17/2025 [facility] [place] Work Phone: Comment on above: 1 Occurrences starti ng 07/17/2024 until 07/17/2025 Comprehensive metabo lic 2000 panel - Serum or Plasma [facility] End: 07-17-2025 EMG With NCV EMG With NCV Neurology Routine Neuropathy 1 Occurrences starting 07/17/2024 until 07/17/2025 [place] Comment on above: 1 Occurrences starti ng 07/17/2024 until 07/17/2025 Rheumatoid factor [Units/volume] in Serum or Plasma [facility] XR Cervical spine 5 Views [facility] Payers Date Payer Category Payer Medicaid [id number] 2024 Unknown 1990 Unknown [id number] Medicaid [id number] Social History Date Type Detail Facility Start: 04-13-2024 End: 04-13-2024 Tobacco smoking status NHIS Never smoked tobacco (finding) [facility] Start: 06-05-2024 End: 09-14-2024 Sex Female (finding) [facility] Start: 1990 Sex Assigned At Female F [facility] Tobacco smoking status NHIS Tobacco smoking consumption unknown [place] Start: 1990 Sex assigned at Not on file P [facility] Gender identity Not on file [facility] Clinical Notes 04-13-2024 to 09-06-2024 Telephone Encounter - Willowjan Silver - 09/06/2024 11:24 AM EDTTelephone Encounter [...] for this referral. documented in this encounter [place] 09-06-2024 Telephone encount er Note Received referral. Dr Vargas reviewed actual films. Advised patient should try cervical epidural injections at C5-6 level. If she is not better after these injections she can call for appointment. Patient will call her PCP for this referral. [place] 07-17-2024 History of Presen t illness Narrative Images from the original note were not included. [address] [phone] Date of Service: 07/17/2024 Subjective: Marlene Gonzales [...] on low-dose amitriptyline RTC 1 month Total xaea-je-rxyr time was 35 minutes with more than [...] or corrected. Thank you for your understanding. [facility] [place] [facility] Dr. Arielle Aiken MD [address] [place] [address] [address] [place] [address] Office: [phone] documented in this encounter [place] 06-26-2024 Evaluation note Diagnosis Onset Date Resolution Anxiety acute June 26, 2024 1:02pm Sleep disturbance acute 2024 1:02pm [facility] Work Phone: 1(940) 890-485512-05-2024 Evaluation note* Diagnosis Onset Date Resolution Status Admit Date Benign thyroid cyst acute Decem 2023 10:40am Wellness examination acute Dece mb2023 10:40am Anxiety acute June 05, 2024 1:02pm Fatigue acute June 05, 2024 1:02pm Multiple joint complaints acute June 05, 2024 1:02pm Neck pain acute June 05, 2024 1:02pm Sleep disturbance acute June 05, 2024 1:02pm Vitamin B 12 deficiency acute J anuary 2024 1:02pm [facility] Work Phone: [phone]) 508-777612-05-2024 Evaluation note* Diagnosis Onset Date Resolution Status Admit Date Benign thyroid cyst acute Decem 2023 10:40am Wellness examination acute Dece mber 2023 10:40am Anxiety acute June 05, 2024 1:02pm Fatigue acute June 05, 2024 1:02pm Multiple joint complaints acute June 05, 2024 1:02pm Neck pain acute June 05, 2024 1:02pm Sleep disturbance acute June 05, 2024 1:02pm Vitamin B 12 deficiency acute J anuary 2024 1:02pm Anxiety acute June 26, 2024 1:02pm Sleep disturbance acute Februar y 2024 1:02pm [facility] Work Phone: Evaluation note* Diagnosis NEHEMIAS [...] on filedocumented in this encounter [facility] Chief Complaint and Reason for Visit [...] disturbance June 26, 2024 1:02pm Family History No Family History Records Found Relationship Condition Age at Onset Recorded Date/T anuj maternal grandfather Malignant neoplasm Unknown family member Malignant neoplasm Unknown maternal grandmother Mesothelioma Unknown Advance Directives No Advanced Directives Records Found Advance Directive Response Recorded Date/ Time Advance Directives No March 1:51pm Advance Directive Response Recorded Date/ Time Advance Directives No March 2:51pm Summary Purpose Additional Source Comments Care Teams (unrecognized sec tion and content) Team Status: Active Member Role Status Dates Jil Barba APRN CLIENT RELATIONS REPRESENTATIVE-C Primary Care Provider Active Team Status: Active Member Role Status Dates Jil Barba APRN CLIENT RELATIONS REPRESENTATIVE-C Primary Care Provider, Attending Provider Active Start: April 11, 2024 Team Status: Inactive Member Role Status Dates Jil Barba APRN CLIENT RELATIONS REPRESENTATIVE-C Primary Care Provider, Attending Provider Active Start: April 13, 2024 End: April 13, 2024 Team Status: Inactive Member Role Status Dates Jil Barba APRN CLIENT RELATIONS REPRESENTATIVE-C Primary Care Provider, Attending Provider Active Start: June 05, 2024 End: June 05, 2024 Team Status: Active Member Role Status Dates Jli Barba APRN CLIENT RELATIONS REPRESENTATIVE-C Primary Care Provider, Attending Provider Active Start: June 19, 2024 Team Status: Inactive Member Role Status Dates Jil Barba APRN CLIENT RELATIONS REPRESENTATIVE-C Primary Care Provider, Attending Provider Active Start: June 26, 2024 End: June 26, 2024 Team Status: Inactive Member Role Status Dates Jil Barba APRN CLIENT RELATIONS REPRESENTATIVE-C Primary Care Provider, Attending Provider Active Start: [...] Reason Onset Date Comments Med Refill 09/04/2024 INFORMATION SOURCE (unrecogn ized section and content) DATE CREATED AUTHOR 12/30/2024 [facility] FOR RECORDS PERTAINING TO PATIENTS WHO ARE [...] BE BASED ON THE PRIMARY CLINICAL RECORDS. [employer] [facility]. provides no warranty or guarantee of the accuracy or completeness of information in this document.
== END 2025-01-03 11:10 | disposition home or self-care (01) ==
LOC: PM 11:09
PROVIDERS: PCP Nurse Practitioner Family; Visit Provider Nurse Practitioner
DX: M48.02 Spinal stenosis, cervical region (principal); M54.12 Radiculopathy, cervical region; M47.812 Spondylosis without myelopathy or radiculopathy, cervical region; M79.18 Myalgia, other site
CPT/HCPCS: G0463

== ENCOUNTER 2025-01-22 09:07 | Day surgery (SDC) | payer OTHER, SELFPAY ==
--- OUTSIDE RECORDS SUMMARY | 2025-01-22 09:10 | XMS_ITS | Clinical Summary ---
Author Organization [facility] Address [address] [place], [place] [id number] Care Team Providers Care Supervisor Show Operations Name Role Phone Jil Barba EMT/DISPATCHER Unavailable [phone] Encounters Date Type Department Care Team Description 01/03/2025 Transcribe Orders Referring Physician [address] [place], [place] [id number] Jil Barba NP Joint disorder (Primary Dx); Fatigue, unspecified type; Abnormal immunological finding in serum from Last 3 Months Social History Tobacco Use Types Packs/Day Years Used Date Smoking Tobacco: Never Assessed Comments Unknown Sex and Gender Information Value Date Recorded Sex Assigned at Not on file Legal Sex Female 3:42 PM EDT Gender Identity Not on file Sexual Orientation Not on file Plan of Treatment Upcoming Encounters Date Type Department Care Team (Latest Contact Info) Description 02/22/2025 11:00 AM EDT [facility] [address] [id number] Gabi Levi MD [address] [place] [id number] Joint disorder [M25.9] Health Maintenance Due Date Last Done Comments Anxiety Screening 2006 Depression Screening 2006 HIV Screening 2006 Hepatitis C Screening 2006 DTaP,Tdap,Td Vaccine (1 - Tdap) 07/23/2007 Hepatitis B Vaccine (1 of 3 - 19+ 3-dose series) 07/22 Cervical Cancer Screening 2009 HPV Vaccine (1 - 3-dose SCDM series) 07/23/2015 Influenza Vaccine (#1) 2025 Insurance [facility] Care Teams Supervisor Show Operations Relationship Specialty Start Date End Date Jil Barba NP [address] [place] [address] Family Medicine 01/03/25
--- OUTSIDE RECORDS SUMMARY | 2025-01-22 09:10 | XMS_ITS | Clinical Summary ---
Author Organization [employer] Address [id number] [address] [place] [address] Care Team Providers Care Computing Tutor Name Role Phone Unavailable Primary Care Provider [...] Mass Index - - Plan of Treatment Health Maintenance Due Date Last Done Comments Depression Screening 2000 Tobacco Screening 2000 Adult BMI Screening 2006 DTaP,Tdap and Td Vaccines (1 - Tdap) 07/23/2007 Pap Smear 2009 Influenza Vaccine 01/08/2025 Medical Devices Not on file Insurance [employer]
--- OUTSIDE RECORDS SUMMARY | 2025-01-22 09:16 | XMS_ITS | CCD ---
Author Organization [facility] Care Team Providers Care Television Tube Inspector Name Role Phone Unavailable Primary Care Provider Unavailnelda Mckeon MD, Rose Carroll Attending Unavailable Freda MEDICAL RECORDS SPECIALIST, Jil Jones Unavailable Medications Current Medications Medication Drug Class(es) [...] Start: 07-03-2024 take 2 tablets by mo [facility] in the morning citalopram (CeleXA) 10 mg [...] Chronic Immunizations and screening for infectious disease (2 sources) Anti-nuclear factor positive; Translations: [Other specified abnormal immunological findings in serum] 07-17-2024 Episodic Malaise and fatigue (1 source) Fatigue; Translations: [Chronic fatigue, unspecified] 07-17-2024 Chronic Malaise and fatigue (7 sources) Fatigue; Translations: [Other fatigue] 06-05-2024 Episodic Nutritional deficiencies (5 sources) Cobalamin deficiency; Translations: [Deficiency of other specified B group vitamins] 06-05-2024 Episodic Other nervous system disorders (2 sources) Neuropathy; Translations: [Polyneuropathy, unspecified] 07-17-2024 Chronic Other non-traumatic joint disorders (1 source) Arthropathy 01-03-2025 Chronic Other non-traumatic joint disorders (3 sources) Joint finding; Translations: [Joint disorder, unspecified] 06-05-2024 Episodic Other non-traumatic joint disorders (2 sources) Joint disorder, unspecified; Translations: [Unspecified disorder of joint, multiple sites] 06-05-2024 Episodic Other non-traumatic joint disorders (1 source) Arthropathy; Translations: [Joint disorder, unspecified] 01-03-2025 Episodic Other screening for suspected conditions (not mental disorders or infectious disease) (1 source) Abnormal blood test 01-03-2025 Episodic Residual codes; unclassified (3 sources) Disturbance [...] [#/Vol] Automated basoph il count 0.0-0.1 [facility] Basophils/100 WBC Auto (Bld) on 06-19-2024 Basophils/100 WBC (Bld) Automated basophil % 0. 2-2.0 [facility] Centriole Ab [Titer] in Seru m by Immunofluorescenceon 06-19-2024 Centriole Ab IF (S) [Titer] Centriole Ab [Titer] in Serum by Immunofluorescence . [facility] Centromere Ab [Titer] in Ser um by Immunofluorescenceon 06-19-2024 Centromere Ab IF (S) [Titer] Centromere Ab [Titer] in Serum by Immunofluorescence . [facility] Eosinophils/100 WBC Auto (Bl d)on 06-19-2024 Eosinophils/100 WBC (Bld) Automated eosinophil % 0.9-7.0 [facility] Erythrocyte distribution wid th Auto (RBC) [Ratio]on 06-19-2024 Erythrocyte distribution width (RBC) [Ratio] Erythrocyte distribution width [Ratio] by Automated count 11.0-15.0 [facility] Estimated glomerular filtrat ion rate (GFR) non- Americanon 06-19-2024 GFR/1.73 sq M.predicted among non-blacks MDRD (S/P/Bld) [Vol rate/Area] Estimated glomerular filtration rate (GFR) non- >=60 mL/min/1.73m 2 [facility] Globulin Calc (S) [Mass/Vol] on 06-19-2024 Globulin (S) [Mass/Vol] Serum globulin measurement by calculation (mass/volume) [facility] Hematocrit Auto (Bld) [Volum e fraction]on 06-19-2024 Hematocrit (Bld) [Volume fraction] Hematocrit [Volume Fraction] of Blood by Automated count 36.0-48.0 [facility] Hemoglobin [Mass/volume] in Bloodon 06-19-2024 Hemoglobin (Bld) [Mass/Vol] Hemoglobin [Mass/volume] in Blood 12.0-16.0 [facility] Iron binding capacity [Mass/ volume] in Serum or Plasmaon 06-19-2024 Iron binding capacity [Mass/Vol] Iron binding capacity [Mass/volume] in Serum or Plasma 250.0-450.0 [facility] Iron saturation [Mass Fracti on] in Serum or Plasmaon 06-19-2024 Iron saturation [Mass fraction] Iron saturation [Mass Fraction] in Serum or Plasma [facility] Laboratory - Chemistry and C hemistry - challengeon 06-19-2024 Albumin [Mass/Vol] 4.0 g/dL 3.4-5.0 [facility] ALP [Catalytic activity/Vol] 69 U/L 46-116 [facility] ALT [Catalytic activity/Vol] 22 U/L 14-59 [facility] AST [Catalytic activity/Vol] 13 U/L Low 15-37 [facility] Bilirubin [Mass/Vol] 0.6 mg/dL 0.2-1.0 [facility] Calcium [Mass/Vol] 9.0 mg/dL 8.5-10.1 [facility] Chloride [Moles/Vol] 100 mmol/L 98-107 [facility] CO2 [Moles/Vol] 29.0 mmol/L 21.0-32.0 [facility] Cobalamin (Vitamin B12) [Mass/Vol] 416 pg/mL 232-1245 [facility] Comment on above: Performed at: [address] [id number] Director: Jose F Mcdonald PhD, Phone: [phone] Creatinine [Mass/Vol] 0.78 mg/dL 0.55-1.02 [facility] GFR/1.73 sq M.predicted MDRD (S/P/Bld) [Vol rate/Area] mL/min/{1.73_m2} >=60 mL/min/1.73m 2 [facility] Glucose [Mass/Vol] 83 mg/dL 74-106 [facility] Iron [Mass/Vol] 144.0 ug/dL 50.0-170.0 [facility] Potassium [Moles/Vol] 3.8 mmol/L 3.5-5.1 [facility] Protein [Mass/Vol] 7.4 g/dL 6.4-8.2 [facility] Sodium [Moles/Vol] 137 mmol/L 136-145 [facility] TSH Qn 0.613 m[IU]/L 0.358-3.740 [facility] Urea nitrogen [Mass/Vol] 12.0 mg/dL 7.0-18.0 [facility] Urea nitrogen/Creatinine [Mass ratio] 15.4 mg/mg [facility] Laboratory - Hematology and Cell countson 06-19-2024 ESR (Bld) [Velocity] 5 mm/h <=20 [facility] Immature granulocytes/100 WBC (Bld) 0.1 % 0.0-0.5 [facility] Leukocytes [#/volume] correc herb for nucleated erythrocytes in Blood by Automated counon 06-19-2024 WBC corrected for nucl RBC Auto (Bld) [#/Vol] Leukocytes [#/volume] corrected for nucleated erythrocytes in Blood by Automated coun 4.0-11.0 [facility] Lymphocytes Auto (Bld) [#/Vo l]on 06-19-2024 Lymphocytes (Bld) [#/Vol] Lymphocytes [#/volume] in Blood by Automated count 1.2-3.8 [facility] Lymphocytes/100 WBC Auto (Bl d)on 06-19-2024 Lymphocytes/100 WBC (Bld) Lymphocytes/100 leukocytes in Blood by Automated count 20.5-60.0 [facility] MCH Auto (RBC) [Entitic mass ]on 06-19-2024 MCH (RBC) [Entitic mass] MCH [Entitic ma ss] by Automated count 26.7-34.0 [facility] MCHC Auto (RBC) [Mass/Vol]on 06-19-2024 MCHC (RBC) [Mass/Vol] MCHC [Mass/volume] by Automated count 29.9-35.2 [facility] MCV Auto (RBC) [Entitic vol] on 06-19-2024 MCV (RBC) [Entitic vol] MCV [Entitic vol ume] by Automated count 81.0-99.0 [facility] Midbody Ab [Titer] in Serum by Immunofluorescenceon 06-19-2024 Midbody Ab IF (S) [Titer] Midbody Ab [Titer] in Serum by Immunofluorescence . [facility] Mitotic spindle apparatus Ab [Titer] in Serum or Plasma by Immunofluorescenceon 06-19-2024 Mitotic spindle apparatus Ab IF [Titer] Mitotic spindle apparatus Ab [Titer] in Serum or Plasma by Immunofluorescence . [facility] Monocytes Auto (Bld) [#/Vol] on 06-19-2024 Monocytes (Bld) [#/Vol] Automated blood monocyte count 0.3-0.8 [facility] Monocytes/100 WBC Auto (Bld) on 06-19-2024 Monocytes/100 WBC (Bld) Automated monocyte % 1. 7-12.0 [facility] Neutrophils Auto (Bld) [#/Vo l]on 06-19-2024 Neutrophils (Bld) [#/Vol] Neutrophils [#/volume] in Blood by Automated count 1.4-6.5 [facility] Neutrophils/100 WBC Auto (Bl d)on 06-19-2024 Neutrophils/100 WBC (Bld) Automated neutrophil % 43.0-75.0 [facility] No Panel Informationon 06-19 25-Hydroxy Vitamin D Total 18.5 ng/mL [facility] Comment on above: <20 ng/mL Vit D defi cient20-<30 ng/mL Vit D [id number] ng/mL Vit D sufficient>100 ng/mL Potential Toxicity Anti-Nuclear Antibody Comment 2 Comment . [facility] Comment on above: Pattern Potential Di sease Association Homogeneous Systemic Lupus Erythematosus, Drug Induced Systemic Lupus Erythematosus, Chronic Autoimmune hepatitis, Juvenile Idiopathic Arthritis Speckled Sjogren Syndrome, Systemic Lupus Erythematosus, Subacute Cutaneous Lupus, Lupus, Congenital Heart Block, Mixed Connective Tissue Disease, Scleroderma-diffuse, Scleroderma-Autoimmune Myositis Overlap Syndrome, Systemic Lupus Sbwlaesmxmflm-Jvftrkkegax-Nckmdvsidk Myositis Overlap Syndrome, Systemic Autoimmune Rheumatic Disease, [...] Cytopenias, Linear Scleroderma, Antiphospholipid Syndrome Performed at: [employer] [id number] Director: Jose F Mcdonald PhD, Phone: [phone] C-Reactive Protein, Quantitative <0.50 mg/dL <=0.50 [facility] Eosinophils # (Auto) 0.1 10 3/uL 0.0-0.7 [facility] Immature Granulocyte # (Auto) 0.01 10 3/uL 0.00-0.03 [facility] Nuclear dots nuclear Ab andrey melecio [Titer] in Serum by Immunofluorescenceon 06-19-2024 Nuclear dots nuclear Ab pattern IF (S) [Titer] Nuclear dots nuclear Ab pattern [Titer] in Serum by Immunofluorescence . [facility] Nuclear membrane pores nucle ar Ab pattern [Titer] in Serum by Immunofluorescenceon 06-19-2024 Nuclear membrane pores nuclear Ab pattern IF (S) [Titer] Nuclear membrane pores nuclear Ab pattern [Titer] in Serum by Immunofluorescence . [facility] PCNA extractable nuclear Ab [Titer] in Serum by Immunofluorescenceon 06-19-2024 PCNA extractable nuclear Ab IF (S) [Titer] PCNA extractable nuclear Ab [Titer] in Serum by Immunofluorescence . [facility] Platelet mean volume Auto (B ld) [Entitic vol]on 06-19-2024 Platelet mean volume (Bld) [Entitic vol] Platelet mean volume [Entitic volume] in Blood by Automated count Low 9.5-13.5 [facility] Platelets Auto (Bld) [#/Vol] on 06-19-2024 Platelets (Bld) [#/Vol] Platelets [#/vol ume] in Blood by Automated count 150-450 [facility] RBC Auto (Bld) [#/Vol]on RBC (Bld) [#/Vol] Erythrocytes [#/volume] in Blood by Automated count 4.20-5.40 [facility] Serum homogeneous pattern an tinuclear antibody (NEHEMIAS) titeron 06-19-2024 Homogenous nuclear Ab pattern (S) [Titer] Serum homogeneous pattern antinuclear antibody (NEHEMIAS) titer . [facility] Serum nuclear antibody titer on 06-19-2024 Nuclear Ab (S) [Titer] Serum nuclear ant ibody titer Abnormal . [facility] Comment on above: Negative <1:80 Borde rline 1:80 Positive >1:80 Serum nucleolar pattern anti nuclear antibody (NEHEMIAS) titeron 06-19-2024 Nucleolar nuclear Ab pattern (S) [Titer] Serum nucleolar pattern antinuclear antibody (NEHEMIAS) titer . [facility] Serum or plasma albumin/glob ulin mass ratioon 06-19-2024 Albumin/Globulin [Mass ratio] Serum or plasma albumin/globulin mass ratio [facility] Serum or plasma anion gap de terminationon 06-19-2024 Anion gap [Moles/Vol] Serum or plasma an ion gap determination [facility] Serum speckled pattern antin uclear antibody (NEHEMIAS) titeron 06-19-2024 Speckled nuclear Ab pattern (S) [Titer] Serum speckled pattern antinuclear antibody (NEHEMIAS) titer . [facility] Comment on above: ICAP nomenclature: A C-2,4,5,29 Vital Signs Date Time Vital Sign Value Performing Clinician Faci lity 09-14-2024 11:130400 Body height 157.48 cm [facility] 09-14-2024 11:13-0400 Body mass index (BMI) [Ratio] 27.1 kg/m2 [facility] 09-14-2024 11:13-0400 Body temperature 95.4 [degF] [facility] 09-14-2024 11:130400 Body weight 67.13 kg [facility] 09-14-2024 11:13-0400 Diastolic blood pressure 62 mm[Hg] [facility] 09-14-2024 11:13-0400 Heart rate 75 /min [facility] 09-14-2024 11:13-0400 SaO2% (BldA) [Mass fraction] 99 % [facility] 09-14-2024 11:13-0400 Systolic blood pressure 110 mm[Hg] [facility] 07-17-2024 12:05-0400 Body weight 68.04 kg Arielle Aiken MD Work Phone: [facility] 07-17-2024 12:05-0400 Diastolic blood pressure 78 mm[Hg] Arielle Aiken MD Work Phone: [facility] 07-17-2024 12:05-0400 Respiratory rate 18 /min Arielle Aiken MD Work Phone: [facility] 07-17-2024 12:05-0400 Systolic blood pressure 112 mm[Hg] Arielle Aiken MD Work Phone: [facility] 06-26-2024 13:05-0500 Body height 157.48 cm [facility] 06-26-2024 13:05-0500 Body mass index (BMI) [Ratio] 27.2 kg/m2 [facility] 06-26-2024 13:05-0500 Body weight 67.58 kg [facility] 06-26-2024 13:05-0500 Diastolic blood pressure 72 mm[Hg] [facility] 06-26-2024 13:05-0500 Heart rate 94 /min [facility] 06-26-2024 13:05-0500 SaO2% (BldA) [Mass fraction] 98 % [facility] 06-26-2024 13:05-0500 Systolic blood pressure 120 mm[Hg] [facility] 06-05-2024 13:07-0500 Body height 157.48 cm [facility] 06-05-2024 13:07-0500 Body mass index (BMI) [Ratio] 27.7 kg/m2 [facility] 06-05-2024 13:07-0500 Body temperature 96.8 [degF] [facility] 06-05-2024 13:07-0500 Body weight 68.71 kg [facility] 06-05-2024 13:07-0500 Diastolic blood pressure 78 mm[Hg] [facility] 06-05-2024 13:07-0500 Heart rate 86 /min [facility] 06-05-2024 13:07-0500 SaO2% (BldA) [Mass fraction] 98 % [facility] 06-05-2024 13:07-0500 Systolic blood pressure 126 mm[Hg] [facility] 04-13-2024 10:57-0500 Body height 157.48 cm [facility] 04-13-2024 10:57-0500 Body mass index (BMI) [Ratio] 28.2 kg/m2 [facility] 04-13-2024 10:57-0500 Body weight 70.02 kg [facility] 04-13-2024 10:57-0500 Diastolic blood pressure 82 mm[Hg] [facility] 04-13-2024 10:57-0500 Heart rate 89 /min [facility] 04-13-2024 10:57-0500 SaO2% (BldA) [Mass fraction] 98 % [facility] 04-13-2024 10:57-0500 Systolic blood pressure 120 mm[Hg] [facility] Encounters Encounter Date Encounter Type Care Provider Facility Start: 01-03-2025 End: 01-03-2025 Transcribe Orders Jil Barba NP Work Phone: Referring Physician Comment on above: Joint disorder (Prim angel Dx); Fatigue, unspecified type; Abnormal immunological finding in serum Start: 12-25-2024 End: 12-25-2024 ambulatory Rose Mckeon MD Facility:[facility] Start: 09-14-2024 End: 09-14-2024 ambulatory [facility] Work Phone: Start: 09-14-2024 End: 09-14-2024 Patient encounter procedure [facility] Work Phone: Start: 09-06-2024 End: 09-06-2024 Telephone encounter Jonathan Vargas MD Work Phone: [facility] Start: 09-04-2024 End: 09-04-2024 Refill Arielle Aiken MD Work Phone: [facility], A Department of [facility] Comment on above: Cervical stenosis of spinal canal (Primary Dx) Start: 07-17-2024 End: 07-17-2024 Office outpatient new 45 minutes Arielle Aiken MD Work Phone: [facility] Comment on above: NEHEMIAS positive (Primar y Dx); Neuropathy; Chronic fatigue; Neck pain Start: 06-26-2024 End: 06-26-2024 ambulatory [facility] Work Phone: Start: 06-26-2024 End: 06-26-2024 Patient encounter procedure [facility] Work Phone: Start: 06-19-2024 Non-patient / Non-visit [facility] Work Phone: Start: 06-05-2024 End: 06-05-2024 ambulatory [facility] Work Phone: Start: 06-05-2024 End: 06-05-2024 Patient encounter procedure [facility] Work Phone: Start: 04-13-2024 Patient encounter status [facility] Start: 04-13-2024 End: 04-13-2024 Encounter for general adult medical examination without abnormal findings [facility] Start: 04-13-2024 End: 04-13-2024 Patient encounter procedure [facility] Work Phone: Start: 04-11-2024 Non-patient / Non-visit [facility] Work Phone: Plan of Treatment Date Care Activity Detail Author Start: 01-08-2025 Influenza vaccination Influenza Vacc ine [facility] Start: 10-23-2024 End: 10-23-2024 Patient encounter procedure 10/23/2024 12:00 PM EDT Office Visit [facility], A Department of [address] [phone] Arielle Aiken MD [address] [place] [id number] [facility], A Department of [facility] Start: 10-16-2024 End: 10-16-2024 Patient encounter procedure 10/16/2024 1:45 PM EDT Procedure visit [facility] Yesi Saez MD [address] [address] Anthony Saez MD [address] [facility] [address] [place] [address] [facility] Yesi Saez MD Start: 09-04-2024 End: 09-04-2024 Patient encounter procedure 09/04/2024 12:45 PM EDT Office Visit [facility], A Department of [address] [phone] Arielle Aiken MD [address] [address] [facility], A Department of [facility] Start: 07-17-2024 End: 07-17-2025 MR Cervical spine WO contrast MR cervical spine without contrast Imaging Routine Neck pain Expected: 07/17/2024, Expires: 07/17/2025 [facility] Comment on above: Expected: 07/17/2024 , Expires: 07/17/2025 Start: 01-09-2024 Influenza vaccination Influenza Vacc ine [facility] Start: 2009 Screening for malign ant neoplasm of cervix Pap Smear [facility] Start: 07-23-2007 DTaP,Tdap and Td Vaccines (1 - Tdap) DTaP,Tdap and Td Vaccines (1 - Tdap) [facility] Start: 2006 Adult BMI Screening Adult BMI Screen ing [facility] Start: 2000 Depression Screening Depression Scre ening [facility] Start: 2000 Tobacco Screening Tobacco Screening [facility] Adenosine monophosphate.cyclic [Moles/volume] in Serum or Plasma [facility] End: 07-17-2025 Antinuclear Ab, HEp-2 Substrate, S Antinuclear Ab, HEp-2 Substrate, S Lab Routine NEHEMIAS positive 1 Occurrences starting 07/17/2024 until 07/17/2025 [facility] Work Phone: Comment on above: 1 Occurrences starti ng 07/17/2024 until 07/17/2025 Comprehensive metabo lic 2000 panel - Serum or Plasma [facility] End: 07-17-2025 EMG With NCV EMG With NCV Neurology Routine Neuropathy 1 Occurrences starting 07/17/2024 until 07/17/2025 [facility] Comment on above: 1 Occurrences starti ng 07/17/2024 until 07/17/2025 Rheumatoid factor [Units/volume] in Serum or Plasma [facility] XR Cervical spine 5 Views [facility] Payers Date Payer Category Payer Medicaid [id number] 2024 Unknown 1990 Unknown [id number] Medicaid [id number] Social History Date Type Detail Facility Start: 04-13-2024 End: 04-13-2024 Tobacco smoking status NHIS Never smoked tobacco (finding) [facility] Start: 06-05-2024 End: 09-14-2024 Sex Female (finding) [facility] Start: 1990 Sex Assigned At Female F [facility] Tobacco smoking status [facility] Tobacco smoking consumption unknown [facility] Start: 1990 Sex assigned at Not on file P [facility] Gender identity Not on file [facility] Start: 01-03-2025 Sex Female [facility] Clinical Notes 04-13-2024 to 09-06-2024 Telephone Encounter - Willow Silver - 09/06/2024 11:24 AM EDTTelephone Encounter - Willow Silver - 09/06/2024 11:24 AM Julito Aiken MD - 07/17/2024 12:00 PM EDT [...] for this referral. documented in this encounter [facility] 09-06-2024 Telephone encount er Note Received referral. Dr Vargas reviewed actual films. Advised patient should try cervical epidural injections at C5-6 level. If she is not better after these injections she can call for appointment. Patient will call her PCP for this referral. [facility] 07-17-2024 History of Presen t illness Narrative Images from the original note were not included. [address] [address] Date of Service: 07/17/2024 Subjective: Marlene Gonzales [...] on low-dose amitriptyline RTC 1 month Total [id number] time was 35 minutes with more than [...] or corrected. Thank you for your understanding. [facility] Rhe[facility] Dr. Arielle Aiken MD [address] [facility], [address] [place] [address] Office: [phone] documented [facility] this encounter [facility] 06-[facility]-2024 Evaluation note Diagnosis Onset Date Resolution Anxiety acute June 26, 2024 1:02pm Sleep disturbance acute uar 2024 1:02pm [facility] Work Phone: 1(735) 299-856912-05-2024 Evaluation note* Diagnosis Onset Date Resolution Status Admit Date Benign thyroid cyst acute Dece2023 10:40am Wellness examination acute Dece 2023 10:40am Anxiety acute June 05, 2024 1:02pm Fatigue acute June 05, 2024 1:02pm Multiple joint complaints acute June 05, 2024 1:02pm Neck pain acute June 05, 2024 1:02pm Sleep disturbance acute June 05, 2024 1:02pm Vitamin B 12 deficiency acute J anuary 2024 1:02pm [facility] Work Phone: 1(287) 770-775612-05-2024 Evaluation note* Diagnosis Onset Date Resolution Status [...] 2024 1:02pm Sleep disturbance acute 2024 1:02pm [facility] Work Phone: Evaluation note* Diagnosis NEHEMIAS positive- Primary Neuropathy Mononeuritis of unspecified site Chronic fatigue Other malaise and fatigue Neck pain Cervicalgia [facility] Diagnosis Cervical stenosis of spinal canal- Primary Spinal stenosis in cervical region [facility]* Diagnosis Joint disorder- Primary Unspecified disorder of joint, site unspecified Fatigue, unspecified type Abnormal immunological finding in serum Other nonspecific findings on examination of blood documented [facility] this [facility] on filedocumented in [facility] encounterPro[facility] SystemInstructionsNot on filedocumented in this encounterProThe [facility] SystemInstructionsNot on filedocumented in this encounterProThe [facility] Chief Complaint and Reason [...] Member Role Status Dates Jil Barba APRN MEDICAL RECORDS SPECIALIST-C Primary Care Provider Active Team Status: Active Member Role Status Dates Jil BRUNO Barba MEDICAL RECORDS SPECIALIST-C Primary Care Provider, Attending Provider Active Start: April 11, 2024 Team Status: Inactive Member Role Status Dates Jil BRUNO Barba MEDICAL RECORDS SPECIALIST-C Primary Care Provider, Attending Provider Active Start: April 13, 2024 End: April 13, 2024 Team Status: Inactive Member Role Status Dates Jil Barba APRN MEDICAL RECORDS SPECIALIST-C Primary Care Provider, Attending Provider Active Start: June 05, 2024 End: June 05, 2024 Team Status: Active Member Role Status Dates Jil Barba APRN MEDICAL RECORDS SPECIALIST-C Primary Care Provider, Attending Provider Active Start: June 19, 2024 Team Status: Inactive Member Role Status Dates Jil Braba APRN MEDICAL RECORDS SPECIALIST-C Primary Care Provider, Attending Provider Active Start: June 26, 2024 End: June 26, 2024 Team Status: Inactive Member Role Status Dates Jil Barba APRN MEDICAL RECORDS SPECIALIST-C Primary Care Provider, Attending Provider Active Start: September 14, 2024 End: September 14, 2024 Television Tube Inspector Relationship Specialty Start Date End Date Jil Barba NP [address] [place] [address] Family Medicine 01/03/25 Goals (unrecognized section and content) Goals may [...] section and content) DATE CREATED AUTHOR 12/30/2024 [facility] Source Comments (unrecognize d section and content) In the event this informatio n is protected by the Federal Confidentiality of Alcohol and Drug Abuse Patient Records regulations: The Federal rules restrict any use of the information to criminally investigate or prosecute any alcohol or drug abuse patient.[facility] FOR RECORDS PERTAINING TO PATIENTS WHO ARE [...] BE BASED ON THE PRIMARY CLINICAL RECORDS. [facility]. provides no warranty or guarantee of the accuracy or completeness of information in this document.
[2025-01-22 09:44] VITALS: BP 128/73; PULSE 74; TEMP 36.8; O2SAT 98
[2025-01-22 10:21] VITALS: BP 132/76; PULSE 68; O2SAT 95
[2025-01-22 10:23] VITALS: BP 126/74; PULSE 70; O2SAT 100
[2025-01-22] MEDS: DEXAMETHASONE SOD PHOS 10 MG/ML VIAL INJ (10:24)
[2025-01-22] MEDS: BUPIVACAINE HCL 0.25% PF 25 MG/10 ML VIAL INJ (10:24)
[2025-01-22] MEDS: LIDOCAINE HCL 2% 400 MG/20 ML MDV 3 ML INJ (10:25)
[2025-01-22] MEDS: IOHEXOL 240 MG/ML - 10 ML VIAL 24 MG INJ (10:25)
--- NOTE | 2025-01-22 10:30 | W.PM.PROCNOT ---
Date of procedure: 01/22/25 Pre-op diagnosis: M54.12 Post-op diagnosis: same as pre-op Procedure: Procedure: Bilateral C6-7 transforaminal epidural steroid injection Medications: Bupivacaine 0.25% 1cc, lidocaine 2% 1cc, dexamethasone 10mg The patient was seen and examined in the preoperative holding area.? Informed consent was obtained and placed on the chart.? Patient was brought to the medical procedure unit and placed in the prone position where a timeout was completed verifying the correct patient, procedure site, position, and planned special equipment using sterile aseptic technique.? Under direct fluoroscopic visualization a 25-gauge Quincke tipped spinal needle was advanced at level left C6-7 to the designated neural foramen where contrast dye was injected to show adequate spread.? There was no evidence of vascular or adverse uptake.? Epidural spread was appreciated.? The above-mentioned injectate was then placed in a 1.5 mL aliquot preceded by negative aspiration.? The needle was removed. The same procedure, at the same level, was completed on the opposite side. ? Patient was taken to the postprocedural recovery area and monitored for an appropriate length of time before found suitable for discharge in the accompaniment of a responsible adult. Anesthesia: Local Surgeon: Rose Mckeon Pathology: none sent Condition: stable Disposition: no change
== END 2025-01-22 10:31 | disposition home or self-care (01) ==
PROVIDERS: PCP Nurse Practitioner Family; Visit Provider Anesthesiology
DX: M54.12 Radiculopathy, cervical region (principal)
CPT/HCPCS: 64479; J0665; J1100; Q9966

== ENCOUNTER 2025-02-12 14:09 | Outpatient (OUT) | payer OTHER, SELFPAY ==
--- OUTSIDE RECORDS SUMMARY | 2025-02-12 14:11 | XMS_ITS | Clinical Summary ---
Author Organization [employer] tem Address [id number] [place] [address] Care Team Providers Care Lead Advisor Name Role Phone Unavailable Primary Care Provider [...]
--- OUTSIDE RECORDS SUMMARY | 2025-02-12 14:11 | XMS_ITS | Clinical Summary ---
Author Organization [facility] Address [address] [place] [id number] Care Team Providers Care Electric Wheelchair Repairer Name Role Phone Jil Barba UNMANNED EQUIPMENT OPERATOR Unavailable [phone] Encounters Date Type Department Care Team Description 01/03/2025 Transcribe Orders Referring Physician [address] [place], [place] [id number] Jil Barba NP Joint disorder (Primary Dx); [...] Contact Info) Description 02/22/2025 11:00 AM EDT [facility] [address] [address] Gabi Levi MD [address] [place] [id number] Joint disorder [M25.9] Health Maintenance Due Date Last Done Comments Anxiety Screening 2006 Depression Screening 2006 HIV Screening 2006 Hepatitis C Screening 2006 DTaP,Tdap,Td Vaccine (1 - Tdap) 07/23/2007 Hepatitis B Vaccine (1 of 3 - 19+ 3-dose series) 07/22 Cervical Cancer Screening 2009 HPV Vaccine (1 - 3-dose SCDM series) 07/23/2015 Covid-19 Vaccine ( season) 2025 Influenza Vaccine (#1) 2025 Insurance [employer] [facility] Care Teams Electric Wheelchair Repairer Relationship Specialty Start Date End Date Jil Braba NP [address] [place] [address] Family Medicine 01/03/25
--- OUTSIDE RECORDS SUMMARY | 2025-02-12 14:13 | XMS_ITS | CCD ---
Author Organization [facility] Informformerly [facility] Partnership [facility] Care Team Providers Care Metal Control Worker Name Role Phone Unavailable Primary Care Provider Pennie Barba BUSINESS RISK CONSULTANT, Jil Jnoes Unavailable Linda MEYER, Rose Carroll Attending Unavailable Linda MEYER, Rose Carroll Attending Unavailable Medications Current Medications [...] Start: 07-03-2024 take 2 tablets by mo [facility] in the morning citalopram (CeleXA) 10 [...] (Bld) [#/Vol] Automated basoph il count 0.0-0.1 [facility] Basophils/100 WBC Auto (Bld) on 06-19-2024 Basophils/100 WBC (Bld) Automated basophil % 0. 2-2.0 [facility] Centriole Ab [Titer] in Seru m by Immunofluorescenceon 06-19-2024 Centriole Ab IF (S) [Titer] Centriole Ab [Titer] in Serum by Immunofluorescence . [facility] Centromere Ab [Titer] in Ser um by Immunofluorescenceon 06-19-2024 Centromere Ab IF (S) [Titer] Centromere Ab [Titer] in Serum by Immunofluorescence . [facility] Eosinophils/100 WBC Auto (Bl d)on 06-19-2024 Eosinophils/100 WBC (Bld) Automated eosinophil % 0.9-7.0 [facility] Erythrocyte distribution wid th Auto (RBC) [Ratio]on 06-19-2024 Erythrocyte distribution width (RBC) [Ratio] Erythrocyte distribution width [Ratio] by Automated count 11.0-15.0 [facility] Estimated glomerular filtrat ion rate (GFR) non- Americanon 06-19-2024 GFR/1.73 sq M.predicted among non-blacks MDRD (S/P/Bld) [Vol rate/Area] Estimated glomerular filtration rate (GFR) non- >=60 mL/min/1.73m 2 [facility] Globulin Calc (S) [Mass/Vol] on 06-19-2024 Globulin (S) [Mass/Vol] Serum globulin measurement by calculation (mass/volume) [facility] Hematocrit Auto (Bld) [Volum e fraction]on 06-19-2024 Hematocrit (Bld) [Volume fraction] Hematocrit [Volume Fraction] of Blood by Automated count 36.0-48.0 [facility] Hemoglobin [Mass/volume] in Bloodon 06-19-2024 Hemoglobin (Bld) [Mass/Vol] Hemoglobin [Mass/volume] in Blood 12.0-16.0 [facility] Iron binding capacity [Mass/ volume] in Serum or Plasmaon 06-19-2024 Iron binding capacity [Mass/Vol] Iron binding capacity [Mass/volume] in Serum or Plasma 250.0-450.0 [facility] Iron saturation [Mass Fracti on] in Serum or Plasmaon 06-19-2024 Iron saturation [Mass fraction] Iron saturation [Mass Fraction] in Serum or Plasma [facility] Laboratory - Chemistry and C hemistry - challengeon 06-19-2024 Albumin [Mass/Vol] 4.0 g/dL 3.4-5.0 [facility] ALP [Catalytic activity/Vol] 69 U/L 46-116 [facility] ALT [Catalytic activity/Vol] 22 U/L 14-59 [facility] AST [Catalytic activity/Vol] 13 U/L Low 15-37 [facility] Bilirubin [Mass/Vol] 0.6 mg/dL 0.2-1.0 [facility] Calcium [Mass/Vol] 9.0 mg/dL 8.5-10.1 [facility] Chloride [Moles/Vol] 100 mmol/L 98-107 [facility] CO2 [Moles/Vol] 29.0 mmol/L 21.0-32.0 [facility] Cobalamin (Vitamin B12) [Mass/Vol] 416 pg/mL 232-1245 [facility] Comment on above: Performed at: [place] [id number] Director: Jose F Mcdonald PhD, Phone: [phone] Creatinine [Mass/Vol] 0.78 mg/dL 0.55-1.02 [facility] GFR/1.73 sq M.predicted MDRD (S/P/Bld) [Vol rate/Area] mL/min/{1.73_m2} >=60 mL/min/1.73m 2 [facility] Glucose [Mass/Vol] 83 mg/dL 74-106 [facility] Iron [Mass/Vol] 144.0 ug/dL 50.0-170.0 [facility] Potassium [Moles/Vol] 3.8 mmol/L 3.5-5.1 [facility] Protein [Mass/Vol] 7.4 g/dL 6.4-8.2 [facility] Sodium [Moles/Vol] 137 mmol/L 136-145 [facility] TSH Qn 0.613 m[IU]/L 0.358-3.740 [facility] Urea nitrogen [Mass/Vol] 12.0 mg/dL 7.0-18.0 [facility] Urea nitrogen/Creatinine [Mass ratio] 15.4 mg/mg [facility] Laboratory - Hematology and Cell countson 06-19-2024 ESR (Bld) [Velocity] 5 mm/h <=20 [facility] Immature granulocytes/100 WBC (Bld) 0.1 % 0.0-0.5 [facility] Leukocytes [#/volume] correc herb for nucleated erythrocytes in Blood by Automated counon 06-19-2024 WBC corrected for nucl RBC Auto (Bld) [#/Vol] Leukocytes [#/volume] corrected for nucleated erythrocytes in Blood by Automated coun 4.0-11.0 [facility] Lymphocytes Auto (Bld) [#/Vo l]on 06-19-2024 Lymphocytes (Bld) [#/Vol] Lymphocytes [#/volume] in Blood by Automated count 1.2-3.8 [facility] Lymphocytes/100 WBC Auto (Bl d)on 06-19-2024 Lymphocytes/100 WBC (Bld) Lymphocytes/100 leukocytes in Blood by Automated count 20.5-60.0 [facility] MCH Auto (RBC) [Entitic mass ]on 06-19-2024 MCH (RBC) [Entitic mass] MCH [Entitic ma ss] by Automated count 26.7-34.0 [facility] MCHC Auto (RBC) [Mass/Vol]on 06-19-2024 MCHC (RBC) [Mass/Vol] MCHC [Mass/volume] by Automated count 29.9-35.2 [facility] MCV Auto (RBC) [Entitic vol] on 06-19-2024 MCV (RBC) [Entitic vol] MCV [Entitic vol ume] by Automated count 81.0-99.0 [facility] Midbody Ab [Titer] in Serum by Immunofluorescenceon 06-19-2024 Midbody Ab IF (S) [Titer] Midbody Ab [Titer] in Serum by Immunofluorescence . [facility] Mitotic spindle apparatus Ab [Titer] in Serum or Plasma by Immunofluorescenceon 06-19-2024 Mitotic spindle apparatus Ab IF [Titer] Mitotic spindle apparatus Ab [Titer] in Serum or Plasma by Immunofluorescence . [facility] Monocytes Auto (Bld) [#/Vol] on 06-19-2024 Monocytes (Bld) [#/Vol] Automated blood monocyte count 0.3-0.8 [facility] Monocytes/100 WBC Auto (Bld) on 06-19-2024 Monocytes/100 WBC (Bld) Automated monocyte % 1. 7-12.0 [facility] Neutrophils Auto (Bld) [#/Vo l]on 06-19-2024 Neutrophils (Bld) [#/Vol] Neutrophils [#/volume] in Blood by Automated count 1.4-6.5 [facility] Neutrophils/100 WBC Auto (Bl d)on 06-19-2024 Neutrophils/100 WBC (Bld) Automated neutrophil % 43.0-75.0 [facility] No Panel Informationon 06-19 25-Hydroxy Vitamin D Total 18.5 ng/mL [facility] Comment on above: <20 ng/mL Vit D defi cient20-<30 ng/mL Vit D [id number] ng/mL Vit D sufficient>100 ng/mL Potential Toxicity Anti-Nuclear Antibody Comment 2 Comment . [facility] Comment on above: Pattern Potential Di sease Association Homogeneous Systemic Lupus Erythematosus, Drug Induced Systemic Lupus Erythematosus, Chronic Autoimmune hepatitis, Juvenile Idiopathic Arthritis Speckled Sjogren Syndrome, Systemic Lupus Erythematosus, Subacute Cutaneous Lupus, Lupus, Congenital Heart Block, Mixed Connective Tissue Disease, Scleroderma-diffuse, Scleroderma-Autoimmune Myositis Overlap Syndrome, Systemic Lupus Bpfwdxaivycmh-Armvrsgvqth-Ykbfcdptvp Myositis Overlap Syndrome, Systemic Autoimmune Rheumatic Disease, [...] Cytopenias, Linear Scleroderma, Antiphospholipid Syndrome Performed at: - [facility] [id number] Director: Jose F Mcdonald PhD, Phone: [phone] C-Reactive Protein, Quantitative <0.50 mg/dL <=0.50 [facility] Eosinophils # (Auto) 0.1 10 3/uL 0.0-0.7 [facility] Immature Granulocyte # (Auto) 0.01 10 3/uL 0.00-0.03 [facility] Nuclear dots nuclear Ab andrey melecio [Titer] in Serum by Immunofluorescenceon 06-19-2024 Nuclear dots nuclear Ab pattern IF (S) [Titer] Nuclear dots nuclear Ab pattern [Titer] in Serum by Immunofluorescence . [facility] Nuclear membrane pores nucle ar Ab pattern [Titer] in Serum by Immunofluorescenceon 06-19-2024 Nuclear membrane pores nuclear Ab pattern IF (S) [Titer] Nuclear membrane pores nuclear Ab pattern [Titer] in Serum by Immunofluorescence . [facility] PCNA extractable nuclear Ab [Titer] in Serum by Immunofluorescenceon 06-19-2024 PCNA extractable nuclear Ab IF (S) [Titer] PCNA extractable nuclear Ab [Titer] in Serum by Immunofluorescence . [facility] Platelet mean volume Auto (B ld) [Entitic vol]on 06-19-2024 Platelet mean volume (Bld) [Entitic vol] Platelet mean volume [Entitic volume] in Blood by Automated count Low 9.5-13.5 [facility] Platelets Auto (Bld) [#/Vol] on 06-19-2024 Platelets (Bld) [#/Vol] Platelets [#/vol ume] in Blood by Automated count 150-450 [facility] RBC Auto (Bld) [#/Vol]on RBC (Bld) [#/Vol] Erythrocytes [#/volume] in Blood by Automated count 4.20-5.40 [facility] Serum homogeneous pattern an tinuclear antibody (NEHEMIAS) titeron 06-19-2024 Homogenous nuclear Ab pattern (S) [Titer] Serum homogeneous pattern antinuclear antibody (NEHEMIAS) titer . [facility] Serum nuclear antibody titer on 06-19-2024 Nuclear Ab (S) [Titer] Serum nuclear ant ibody titer Abnormal . [facility] Comment on above: Negative <1:80 Borde rline 1:80 Positive >1:80 Serum nucleolar pattern anti nuclear antibody (NEHEMIAS) titeron 06-19-2024 Nucleolar nuclear Ab pattern (S) [Titer] Serum nucleolar pattern antinuclear antibody (NEHEMIAS) titer . [facility] Serum or plasma albumin/glob ulin mass ratioon 06-19-2024 Albumin/Globulin [Mass ratio] Serum or plasma albumin/globulin mass ratio [facility] Serum or plasma anion gap de terminationon 06-19-2024 Anion gap [Moles/Vol] Serum or plasma an ion gap determination [facility] Serum speckled pattern antin uclear antibody (NEHEMIAS) titeron 06-19-2024 Speckled nuclear Ab pattern (S) [Titer] Serum speckled pattern antinuclear antibody (NEHEMIAS) titer . [facility] Comment on above: ICAP nomenclature: A C-2,4,5,29 Vital Signs Date Time Vital Sign Value Performing Clinician Michael lity 09-14-2024 11:130400 Body height 157.48 cm [facility] 09-14-2024 11:13-0400 Body mass index (BMI) [Ratio] 27.1 kg/m2 [facility] 09-14-2024 11:130400 Body temperature 95.4 [degF] [facility] 09-14-2024 11:13-0400 Body weight 67.13 kg [facility] 09-14-2024 11:13-0400 Diastolic blood pressure 62 mm[Hg] [facility] 09-14-2024 11:130400 Heart rate 75 /min [facility] 09-14-2024 11:13-0400 SaO2% (BldA) [Mass fraction] 99 % [facility] 09-14-2024 11:13-0400 Systolic blood pressure 110 mm[Hg] [facility] 07-17-2024 12:05-0400 Body weight 68.04 kg Arielle Aiken MD Work Phone: [facility] 07-17-2024 12:05-0400 Diastolic blood pressure 78 mm[Hg] Arielle Aiken MD Work Phone: [facility] 07-17-2024 12:05-0400 Respiratory rate 18 /min Arielle Aiken MD Work Phone: [facility] 07-17-2024 12:05-0400 Systolic blood pressure 112 mm[Hg] Arielle Aiken MD Work Phone: [facility] 06-26-2024 13:05-0500 Body height 157.48 cm [facility] 06-26-2024 13:05-0500 Body mass index (BMI) [Ratio] 27.2 kg/m2 [facility] 06-26-2024 13:05-0500 Body weight 67.58 kg [facility] 06-26-2024 13:05-0500 Diastolic blood pressure 72 mm[Hg] [facility] 06-26-2024 13:05-0500 Heart rate 94 /min [facility] 06-26-2024 13:05-0500 SaO2% (BldA) [Mass fraction] 98 % [facility] 06-26-2024 13:05-0500 Systolic blood pressure 120 mm[Hg] [facility] 06-05-2024 13:07-0500 Body height 157.48 cm [facility] 06-05-2024 13:07-0500 Body mass index (BMI) [Ratio] 27.7 kg/m2 [facility] 06-05-2024 13:07-0500 Body temperature 96.8 [degF] [facility] 06-05-2024 13:07-0500 Body weight 68.71 kg [facility] 06-05-2024 13:07-0500 Diastolic blood pressure 78 mm[Hg] [facility] 06-05-2024 13:07-0500 Heart rate 86 /min [facility] 06-05-2024 13:07-0500 SaO2% (BldA) [Mass fraction] 98 % [facility] 06-05-2024 13:07-0500 Systolic blood pressure 126 mm[Hg] [facility] 04-13-2024 10:57-0500 Body height 157.48 cm [facility] 04-13-2024 10:57-0500 Body mass index (BMI) [Ratio] 28.2 kg/m2 [facility] 04-13-2024 10:57-0500 Body weight 70.02 kg [facility] 04-13-2024 10:57-0500 Diastolic blood pressure 82 mm[Hg] [facility] 04-13-2024 10:57-0500 Heart rate 89 /min [facility] 04-13-2024 10:57-0500 SaO2% (BldA) [Mass fraction] 98 % [facility] 04-13-2024 10:57-0500 Systolic blood pressure 120 mm[Hg] [facility] Encounters Encounter Date Encounter Type Care Provider Facility Start: 01-22-2025 End: 01-22-2025 [facility] Start: 01-03-2025 End: 01-03-2025 Transcribe Orders Jil Barba NP Work Phone: Referring Physician Comment on above: Joint disorder (Prim angel Dx); Fatigue, unspecified type; Abnormal immunological finding in serum Start: 12-25-2024 End: 12-25-2024 ambulatory Rose Mckeon MD Facility:[facility] Start: 09-14-2024 End: 09-14-2024 ambulatory [facility] Work Phone: Start: 09-14-2024 End: 09-14-2024 Patient encounter procedure [facility] Phys[facility] Work Phone: Start: 09-06-2024 End: 09-06-2024 Telephone encounter Jonathan Vargas MD Work Phone: [facility] Start: 09-04-2024 End: 09-04-2024 Refill Arielle Aiken MD Work Phone: [facility], A Department of [facility] Comment on above: Cervical stenosis of spinal canal (Primary Dx) Start: 07-17-2024 End: 07-17-2024 Office outpatient new 45 minutes Arielle Aiken MD Work Phone: [facility] Comment on above: NEHEMIAS positive (Primar y Dx); Neuropathy; Chronic fatigue; Neck pain Start: 06-26-2024 End: 06-26-2024 [facility] Work Phone: Start: 06-26-2024 End: 06-26-2024 Patient encounter procedure [facility] Phys[facility] Work Phone: Start: 06-19-2024 Non-patient / Non-visit [facility] Physician [facility] Work Phone: Start: 06-05-2024 End: 06-05-2024 ambulatory [facility] Work Phone: Start: 06-05-2024 End: 06-05-2024 Patient encounter procedure [facility] Phys[facility] Work Phone: Start: 04-13-2024 Patient encounter status [facility] Start: 04-13-2024 End: 04-13-2024 Encounter for general adult medical examination without abnormal findings [facility] Start: 04-13-2024 End: 04-13-2024 Patient encounter procedure [facility] Phys[facility] Work Phone: Start: 04-11-2024 Non-patient / Non-visit [facility] Phys[facility] Work Phone: Plan of Treatment Date Care Activity Detail Author Start: 01-08-2025 Influenza vaccination Influenza Vacc ine [facility] Start: 10-23-2024 End: 10-23-2024 Patient encounter procedure 10/23/2024 12:00 PM EDT Office Visit [facility], A Department of [place] [id number] [phone] Arielle Aiken MD [address] [address] [facility], A Department of [facility] Start: 10-16-2024 End: 10-16-2024 Patient encounter procedure 10/16/2024 1:45 PM EDT Procedure visit [facility] Yesi Saez MD [address] [phone] Anthony Saez MD [address] [facility] [address] [place] [address] [facility] Yesi Saez MD Start: 09-04-2024 End: 09-04-2024 Patient encounter procedure 09/04/2024 12:45 PM EDT Office Visit [facility], A Department of [facility] [address] [phone] Arielle Aiken MD [address] [address] [facility], A Department of [facility] Start: 07-17-2024 End: 07-17-2025 MR Cervical spine WO contrast MR cervical spine without contrast Imaging Routine Neck pain Expected: 07/17/2024, Expires: 07/17/2025 [facility] Comment on above: Expected: 07/17/2024 , Expires: 07/17/2025 Start: 01-09-2024 Influenza vaccination Influenza Vacc ine [facility] Start: 2009 Screening for malign ant neoplasm of cervix Pap Smear [facility] Start: 07-23-2007 DTaP,Tdap and Td Vaccines (1 - Tdap) DTaP,Tdap and Td Vaccines (1 - Tdap) [facility] Start: 2006 Adult BMI Screening Adult BMI Screen ing [facility] Start: 2000 Depression Screening Depression Scre ening [facility] Start: 2000 Tobacco Screening Tobacco Screening [facility] Adenosine monophosphate.cyclic [Moles/volume] in Serum or Plasma [facility] End: 07-17-2025 Antinuclear Ab, HEp-2 Substrate, S Antinuclear Ab, HEp-2 Substrate, S Lab Routine NEHEMIAS positive 1 Occurrences starting 07/17/2024 until 07/17/2025 [facility] Work Phone: Comment on above: 1 Occurrences starti ng 07/17/2024 until 07/17/2025 Comprehensive metabo lic 2000 panel - Serum or Plasma [facility] End: 07-17-2025 EMG With NCV EMG With NCV Neurology Routine Neuropathy 1 Occurrences starting 07/17/2024 until 07/17/2025 [facility] Comment on above: 1 Occurrences starti ng 07/17/2024 until 07/17/2025 Rheumatoid factor [Units/volume] in Serum or Plasma [facility] XR Cervical spine 5 Views [facility] Payers Date Payer Category Payer Medicaid [id number] 2024 Unknown 1990 Unknown [id number] 1990 Unknown [id number] Medicaid [id number] Social History Date Type Detail Facility Start: 04-13-2024 End: 04-13-2024 Tobacco smoking status NHIS Never smoked tobacco (finding) [facility] Start: 06-05-2024 End: 09-14-2024 Sex Female (finding) [facility] Start: 1990 Sex Assigned At Female [facility] Tobacco smoking status [facility] Tobacco smoking consumption unknown [facility] Start: 1990 Sex assigned at Not on file [facility] Gender identity Not on file [facility] Start: 01-03-2025 Sex Female [facility] Clinical Notes 04-13-2024 to 09-06-2024 Telephone [...] for this referral. [facility] 09-06-2024 Telephone encount er Note Received referral. Dr Vargas reviewed actual films. Advised patient should try cervical epidural injections at C5-6 level. If she is not better after these injections she can call for appointment. Patient will call her PCP for this referral. [facility] 07-17-2024 History of Presen t illness Narrative Images from the original note were not included. [address] [facility] [address] [facility] [id number] Date of Service: 07/17/2024 Subjective: Marlene Gonzales [...] on low-dose amitriptyline RTC 1 month Total tiff-an-ssjz time was 35 minutes with more than [...] or corrected. Thank you for your understanding. [facility] [place] [address] [place] [address], [address] [place] [address] Office: [phone] documented in this encounter [facility] 06-26-2024 Evaluation note Diagnosis Onset Date Resolution Anxiety acute June 26, 2024 1:02pm Sleep disturbance acute 2024 1:02pm [facility] Work Phone: 1(698) 360-741712-05-2024 Evaluation note* Diagnosis Onset Date Resolution Status Admit Date Benign thyroid cyst acute Dece2023 10:40am Wellness examination acute Dece mb2023 10:40am Anxiety acute June 05, 2024 1:02pm Fatigue acute June 05, 2024 1:02pm Multiple joint complaints acute June 05, 2024 1:02pm Neck pain acute June 05, 2024 1:02pm Sleep disturbance acute June 05, 2024 1:02pm Vitamin B 12 deficiency acute J anuary 2024 1:02pm [facility] Work Phone: 1(222) 526-655512-05-2024 Evaluation note* Diagnosis Onset Date Resolution Status [...] 2024 1:02pm Sleep disturbance acute 2024 1:02pm [facility] Work Phone: Evaluation note* Diagnosis NEHEMIAS positive- Primary Neuropathy Mononeuritis of unspecified site Chronic fatigue Other malaise and fatigue Neck pain Cervicalgia [facility] Cervical stenosis of spinal canal- Primary Spinal stenosis in cervical region [facility] Joint disorder- Primary Unspecified disorder of joint, site unspecified Fatigue, unspecified type Abnormal immunological finding in serum Other nonspecific findings on examination of blood documented in this encounter [facility] on filedocumented in this encounter[facility] System[facility]ructionsNot on filedocumented in this encounterPro[facility] SystemInstructionsNot on filedocumented in this encounter[facility] Chief Complaint and Reason for Visit [...] Member Role Status Dates Jil Barba APRN BUSINESS RISK CONSULTANT-C Primary Care Provider Active Team Status: Active Member Role Status Dates Jil Barba APRN BUSINESS RISK CONSULTANT-C Primary Care Provider, Attending Provider Active Start: April 11, 2024 Team Status: Inactive Member Role Status Dates Jil Barba APRN BUSINESS RISK CONSULTANT-C Primary Care Provider, Attending Provider Active Start: April 13, 2024 End: April 13, 2024 Team Status: Inactive Member Role Status Dates Jil Barba APRN BUSINESS RISK CONSULTANT-C Primary Care Provider, Attending Provider Active Start: June 05, 2024 End: June 05, 2024 Team Status: Active Member Role Status Dates Jil Barba APRN BUSINESS RISK CONSULTANT-C Primary Care Provider, Attending Provider Active Start: June 19, 2024 Team Status: Inactive Member Role Status Dates Jil Barba APRN BUSINESS RISK CONSULTANT-C Primary Care Provider, Attending Provider Active Start: June 26, 2024 End: June 26, 2024 Team Status: Inactive Member Role Status Dates Jil Barba APRN BUSINESS RISK CONSULTANT-C Primary Care Provider, Attending Provider Active Start: September 14, 2024 End: September 14, 2024 Metal Control Worker Relationship Specialty Start Date End Date Jil Barba NP [address] [place] [address] Family Medicine 01/03/25 Goals (unrecognized section and [...] Reason Onset Date Comments Med Refill 09/04/2024 Source Comments (unrecognize d section and content) In the event this informatio n is protected by the Federal Confidentiality of Alcohol and Drug Abuse Patient Records regulations: The Federal rules restrict any use of the information to criminally investigate or prosecute any alcohol or drug abuse patient.[facility] INFORMATION SOURCE (unrecogn ized section and content) DATE CREATED AUTHOR 01/24/2025 [facility] FOR RECORDS PERTAINING TO PATIENTS WHO ARE [...] BE BASED ON THE PRIMARY CLINICAL RECORDS. [facility] [employer] [facility]. provides no warranty or guarantee of the accuracy or completeness of information in this document.
--- NOTE | 2025-02-12 15:17 | PM.CN ---
Consult Note: HPI Data of Consult Patient: known to practice within the last 3 years Consult date: 02/12/25 Requesting Physician: Nida Sanders NP Primary Care Provider: NIA WILSON Consult Narrative Reason for consult: left neck pain Narrative: 34yof who presents for assessment. notes significant relief after recent cervical tfesi. endorses mild residual achiness through left neck and shoulder area. imaging shows spondylosis at multiple levels. has not tried baclofen yet. denies adverse med side effects. cc:: CC: Nida Sanders NP Review of Systems ROS Status of ROS 10 or more systems reviewed and unremarkable except as noted in history and below [facility] Medical History Neck pain ?M54.2 - Cervicalgia (ICD-10) Upper back pain ?M54.9 - Dorsalgia, unspecified (ICD-10) Gingivitis ?K05.10 - Chronic gingivitis, plaque induced (ICD-10) Meds Home Medications and Allergies Home Medications ?Medication ?Instructions ?Recorded ?Confirmed ?Type citalopram 10 mg tablet 10 mg PO DAILY 12/07/24 01/22/25 History magnesium glycinate 120 mg (as 240 mg PO HS 12/07/24 01/22/25 History glycinate) capsule baclofen 10 mg tablet 10 mg PO BID PRN spasms 01/03/25 01/22/25 History Allergies Allergy/AdvReac Type Severity Reaction Status Date / Time No Known Drug Allergies Allergy Verified 01/22/25 09:46 Exam Narrative Exam Narrative: Psych-alert and oriented x 3.? Attentive and appropriate, constitutionally normal, displays normal mood and affect per situation.? There are no obvious deficits in memory, reasoning, or intellect.? Skin-no obvious rashes, bruising, or erythema noted to the patient's area of pain. Extremities-upper extremities are warm with minimal edema and palpable pulses. Cervical- tenderness to palpation noted in the cervical spine and paraspinal musculature.? Pain is elicited with extension, and lateral rotation of the cervical spine.? Range of motion is slightly diminished due to pain. Facet loading maneuvers are positive on the left.? Coordination remains intact.? Gait remains non-antalgic. Assessment and Plan Assessment and Plan (1) Cervical spondylosis: Plan 34yof who presents for assessment. imaging reviewed, as noted. had significant benefit of radiating pain after recent cervical tfesi. suspect that residual axial pain is due to cervical spondylosis. discussed that depending on pain level, could conisder cervical mbb and possible rfa in the future. she expressed understanding and will call when ready. medications reviewed, no changes. follow up in 6 months or sooner, if needed.
== END 2025-02-12 14:10 | disposition home or self-care (01) ==
LOC: PM 14:09
PROVIDERS: PCP Nurse Practitioner Family; Visit Provider Nurse Practitioner
DX: M47.812 Spondylosis without myelopathy or radiculopathy, cervical region (principal)
CPT/HCPCS: G0463